=== PATIENT | male | born 1945 | race Caucasian/White ===

== ENCOUNTER 2017-01-26 13:36 | Outpatient (CLI) | payer MEDICARE | END 2017-01-26 13:37 | disposition home or self-care (01) | DX: I48.91 Unspecified atrial fibrillation (principal); E11.9 Type 2 diabetes mellitus without complications; G89.4 Chronic pain syndrome; I25.10 Atherosclerotic heart disease of native coronary artery without angina pectoris ==

== ENCOUNTER 2017-08-08 08:00 | Outpatient (CLI) | payer MEDICARE ==
[2017-08-08 19:10] LABS: BASOPHILS % (AUTO) 0.5 %; EOSINOPHILS # (AUTO) 0.2 10^3/uL (0.0-0.7); EOSINOPHILS % (AUTO) 2.3 %; HCT - HEMATOCRIT 37.7 % (42.0-52.0); HGB - HEMOGLOBIN 12.3 g/dL (14.0-18.0); LYMPHOCYTES # (AUTO) 1.7 10^3/uL (1.5-3.5); LYMPHOCYTES % (AUTO) 21.1 %; MEAN CORPUSCULAR HEMOGLOBIN 31.7 pg (27.0-31.0); MEAN CORPUSCULAR HGB CONC 32.7 g/dL (32.0-36.0); MEAN PLATELET VOLUME 7.9 fL (7.4-11.4); MONOCYTES # (AUTO) 0.9 10^3/uL (0.0-1.0); MONOCYTES % (AUTO) 10.8 %; NEUTROPHILS # (AUTO) 5.2 10^3/uL (1.5-6.6); NEUTROPHILS % (AUTO) 65.3 %; RED BLOOD COUNT 3.89 10^6/uL (4.70-6.10); RED CELL DISTRIBUTION WIDTH 13.9 % (12.0-15.0)
[2017-08-08 19:32] LABS: ALBUMIN/GLOBULIN RATIO 2.2 (1.0-2.2); BILIRUBIN,TOTAL 0.7 mg/dL (0.2-1.0); BUN - BLOOD UREA NITROGEN 15 mg/dL (6-20); CALCIUM 8.7 mg/dL (8.5-10.3); CARBON DIOXIDE - CO2 24 mmol/L (21-32); CHLORIDE 104 mmol/L (101-111); CHOL/HDL RATIO 2.9 (<5.0); CHOLESTEROL 134 mg/dL; CREATININE 0.9 mg/dL (0.6-1.2); GFR - MDRD 84 (>89); GLUCOSE 90 mg/dL (70-100); HDL CHOLESTEROL 47 mg/dL; LDL/HDL RATIO 1.3 (<3.6); POTASSIUM 3.8 mmol/L (3.5-5.0); SODIUM 135 mmol/L (135-145); TRIGLYCERIDES 121 mg/dL; VLDL CHOLESTEROL 24 mg/dL
[2017-08-08 20:18] LABS: HEMOGLOBIN A1C 0.27 g/dL
== END 2017-08-08 08:01 | disposition home or self-care (01) ==
LOC: LAB.WCP 08:00
PROVIDERS: ATTEND Family Medicine
DX: I25.5 Ischemic cardiomyopathy (principal); G89.4 Chronic pain syndrome; E11.9 Type 2 diabetes mellitus without complications; M06.09 Rheumatoid arthritis without rheumatoid factor, multiple sites; M19.90 Unspecified osteoarthritis, unspecified site; M25.511 Pain in right shoulder; Z79.899 Other long term (current) drug therapy
CPT/HCPCS: 36415; 80053; 80061; 82043; 83036; 85025; 85651; 86140

== ENCOUNTER 2018-08-06 13:48 | Outpatient (CLI) | payer MEDICARE ==
[2018-08-06 20:09] LABS: INR 5.6 (0.8-1.2)
== END 2018-08-06 13:49 | disposition home or self-care (01) ==
LOC: LAB.WCP 13:48
PROVIDERS: ATTEND Nurse Practitioner
DX: Z79.01 Long term (current) use of anticoagulants (principal)
CPT/HCPCS: 36415; 85610

== ENCOUNTER 2018-08-28 13:13 | Outpatient (CLI) | payer MEDICARE ==
[2018-08-28 19:03] LABS: INR 2.7 (0.8-1.2); PT - PROTHROMBIN TIME 30.2 secs (9.9-12.6)
== END 2018-08-28 13:14 | disposition home or self-care (01) ==
LOC: LAB.WCP 13:13
PROVIDERS: ATTEND Family Medicine
DX: I48.91 Unspecified atrial fibrillation (principal); Z79.01 Long term (current) use of anticoagulants
CPT/HCPCS: 36415; 85610

== ENCOUNTER 2018-11-08 08:00 | Outpatient (CLI) | payer MEDICARE ==
[2018-11-08 18:56] LABS: BASOPHILS # (AUTO) 0.1 10^3/uL (0.0-0.1); EOSINOPHILS # (AUTO) 0.2 10^3/uL (0.0-0.7); EOSINOPHILS % (AUTO) 3.4 %; HGB - HEMOGLOBIN 11.6 g/dL (14.0-18.0); LYMPHOCYTES # (AUTO) 1.4 10^3/uL (1.5-3.5); LYMPHOCYTES % (AUTO) 19.2 %; MEAN CORPUSCULAR HEMOGLOBIN 31.4 pg (27.0-31.0); MEAN CORPUSCULAR HGB CONC 32.1 g/dL (32.0-36.0); MEAN CORPUSCULAR VOLUME 97.8 fL (80.0-94.0); MEAN PLATELET VOLUME 8.5 fL (7.4-11.4); MONOCYTES # (AUTO) 0.9 10^3/uL (0.0-1.0); MONOCYTES % (AUTO) 12.9 %; NEUTROPHILS # (AUTO) 4.6 10^3/uL (1.5-6.6); NEUTROPHILS % (AUTO) 63.5 %; PLT - PLATELET COUNT 280 10^3/uL (130-450); RED BLOOD COUNT 3.69 10^6/uL (4.70-6.10); RED CELL DISTRIBUTION WIDTH 15.4 % (12.0-15.0); WHITE BLOOD COUNT 7.3 x10^3/uL (4.8-10.8)
[2018-11-08 19:39] LABS: ALBUMIN 3.8 g/dL (3.2-5.5); ALBUMIN/GLOBULIN RATIO 1.8 (1.0-2.2); ALKALINE PHOSPHATASE 77 IU/L (42-121); ALT ALANINE AMINOTRANSFERASE 12 IU/L (10-60); AST ASPARTATE AMINOTRANSFERASE 18 IU/L (10-42); BILIRUBIN,TOTAL 0.6 mg/dL (0.2-1.0); BUN - BLOOD UREA NITROGEN 13 mg/dL (6-20); CARBON DIOXIDE - CO2 27 mmol/L (21-32); CHLORIDE 105 mmol/L (101-111); CHOL/HDL RATIO 2.6 (<5.0); CHOLESTEROL 140 mg/dL; GFR - MDRD 74 (>89); GLUCOSE 85 mg/dL (70-100); HDL CHOLESTEROL 54 mg/dL; LDL CHOLESTEROL,CALCULATED 67 mg/dL; LDL/HDL RATIO 1.2 (<3.6); SODIUM 140 mmol/L (135-145); TOTAL PROTEIN 5.9 g/dL (6.7-8.2); VLDL CHOLESTEROL 19 mg/dL
[2018-11-08 20:08] LABS: HEMOGLOBIN A1C 0.34 g/dL; HEMOGLOBIN A1C % 4.7 % (4.6-6.2)
[2018-11-09 12:50] LABS: % IRON SATURATION 24 % (20-50); IRON 75 ug/dL (45-182); TOTAL IRON BINDING CAPACITY 314 ug/dL (250-450); TRANSFERRIN 224 mg/dL (180-329)
[2018-11-09 13:00] LABS: FERRITIN 81.9 ng/mL (23.9-336.2)
== END 2018-11-08 23:59 | disposition home or self-care (01) ==
LOC: LAB.WCP 08:00
PROVIDERS: ATTEND Family Medicine
DX: I25.5 Ischemic cardiomyopathy (principal); E78.5 Hyperlipidemia, unspecified; I48.91 Unspecified atrial fibrillation; M06.4 Inflammatory polyarthropathy; E11.9 Type 2 diabetes mellitus without complications; I25.10 Atherosclerotic heart disease of native coronary artery without angina pectoris; D64.9 Anemia, unspecified
CPT/HCPCS: 36415; 80053; 80061; 82043; 82607; 82728; 83036; 83540; 83721; 84443; 84466; 85025

== ENCOUNTER 2018-11-14 17:38 | Outpatient (CLI) | payer MEDICARE ==
[2018-11-14 19:19] LABS: MICROALBUM/CREATININE RATIO,UR 3.3 ug/mg (<30.0); MICROALBUMIN,URINE 0.8 mg/dL (0-300.0)
== END 2018-11-14 23:59 | disposition home or self-care (01) ==
LOC: LAB.R 17:38
PROVIDERS: ATTEND Family Medicine
DX: E11.9 Type 2 diabetes mellitus without complications (principal)
CPT/HCPCS: 82043; 82570

== ENCOUNTER 2018-12-20 08:00 | Outpatient (CLI) | payer MEDICARE | END 2018-12-20 23:59 | disposition home or self-care (01) | LOC: LAB.WCP 08:00 | PROVIDERS: ATTEND Family Medicine | DX: I48.91 Unspecified atrial fibrillation (principal); Z79.01 Long term (current) use of anticoagulants ==

== ENCOUNTER 2019-01-03 08:00 | Outpatient (CLI) | payer MEDICARE | END 2019-01-03 23:59 | disposition home or self-care (01) | LOC: LAB.WCP 08:00 | PROVIDERS: ATTEND Family Medicine | DX: I48.91 Unspecified atrial fibrillation (principal); Z79.01 Long term (current) use of anticoagulants | CPT/HCPCS: 81025 ==

== ENCOUNTER 2019-02-06 08:00 | Outpatient (CLI) | payer MEDICARE | END 2019-02-06 23:59 | disposition home or self-care (01) | LOC: LAB.WCP 08:00 | PROVIDERS: ATTEND Family Medicine | DX: I48.91 Unspecified atrial fibrillation (principal); Z79.01 Long term (current) use of anticoagulants | CPT/HCPCS: 81025 ==

== ENCOUNTER 2019-02-13 08:00 | Outpatient (CLI) | payer MEDICARE | END 2019-02-13 23:59 | disposition home or self-care (01) | LOC: LAB.WCP 08:00 | PROVIDERS: ATTEND Family Medicine | DX: I48.91 Unspecified atrial fibrillation (principal); Z79.01 Long term (current) use of anticoagulants ==

== ENCOUNTER 2019-02-26 08:00 | Outpatient (CLI) | payer MEDICARE | END 2019-02-26 23:59 | disposition home or self-care (01) | LOC: LAB.WCP 08:00 | PROVIDERS: ATTEND Family Medicine | DX: Z51.81 Encounter for therapeutic drug level monitoring (principal); I48.91 Unspecified atrial fibrillation; Z79.01 Long term (current) use of anticoagulants ==

== ENCOUNTER 2019-03-26 08:00 | Outpatient (CLI) | payer MEDICARE | END 2019-03-26 08:01 | disposition home or self-care (01) | LOC: LAB.WCP 08:00 | PROVIDERS: ATTEND Family Medicine | DX: I48.91 Unspecified atrial fibrillation (principal); Z79.01 Long term (current) use of anticoagulants ==

== ENCOUNTER 2019-04-23 08:00 | Outpatient (CLI) | payer MEDICARE | END 2019-04-23 08:01 | disposition home or self-care (01) | LOC: LAB.WCP 08:00 | PROVIDERS: ATTEND Physician Assistant Medical | DX: I48.91 Unspecified atrial fibrillation (principal); Z79.01 Long term (current) use of anticoagulants ==

== ENCOUNTER 2019-05-18 | Outpatient (CLI) | payer MEDICARE | END 2019-05-18 09:54 | disposition home or self-care (01) ==

== ENCOUNTER 2019-06-10 08:00 | Outpatient (CLI) | payer MEDICARE | END 2019-06-10 23:59 | disposition home or self-care (01) | LOC: LAB.WCP 08:00 | PROVIDERS: ATTEND Physician Assistant Medical | DX: I48.91 Unspecified atrial fibrillation (principal); Z79.01 Long term (current) use of anticoagulants ==

== ENCOUNTER 2019-06-19 08:00 | Outpatient (CLI) | payer MEDICARE | END 2019-06-19 23:59 | disposition home or self-care (01) | LOC: LAB.WCP 08:00 | PROVIDERS: ATTEND Family Medicine | DX: I48.91 Unspecified atrial fibrillation (principal); Z79.01 Long term (current) use of anticoagulants ==

== ENCOUNTER 2019-06-26 08:00 | Outpatient (CLI) | payer MEDICARE | END 2019-06-26 08:01 | disposition home or self-care (01) | LOC: LAB.WCP 08:00 | PROVIDERS: ATTEND Family Medicine | DX: I48.91 Unspecified atrial fibrillation (principal); Z79.01 Long term (current) use of anticoagulants ==

== ENCOUNTER 2019-07-30 08:00 | Outpatient (CLI) | payer MEDICARE | END 2019-07-30 08:01 | disposition home or self-care (01) | LOC: LAB.WCP 08:00 | PROVIDERS: ATTEND Physician Assistant Medical | DX: I48.91 Unspecified atrial fibrillation (principal); Z79.01 Long term (current) use of anticoagulants ==

== ENCOUNTER 2019-08-27 08:00 | Outpatient (CLI) | payer MEDICARE | END 2019-08-27 23:59 | disposition home or self-care (01) | LOC: LAB.WCP 08:00 | PROVIDERS: ATTEND Family Medicine | DX: I48.91 Unspecified atrial fibrillation (principal); Z79.01 Long term (current) use of anticoagulants ==

== ENCOUNTER 2019-09-02 08:00 | Outpatient (CLI) | payer MEDICARE | END 2019-09-02 23:59 | disposition home or self-care (01) | LOC: LAB.WCP 08:00 | PROVIDERS: ATTEND Physician Assistant Medical | DX: I48.91 Unspecified atrial fibrillation (principal); Z79.01 Long term (current) use of anticoagulants ==

== ENCOUNTER 2019-09-09 08:00 | Outpatient (CLI) | payer MEDICARE | END 2019-09-09 23:59 | disposition home or self-care (01) | LOC: LAB.WCP 08:00 | PROVIDERS: ATTEND Physician Assistant Medical | DX: I48.91 Unspecified atrial fibrillation (principal); Z79.01 Long term (current) use of anticoagulants ==

== ENCOUNTER 2019-09-17 08:00 | Outpatient (CLI) | payer MEDICARE | END 2019-09-17 23:59 | disposition home or self-care (01) | LOC: LAB.WCP 08:00 | PROVIDERS: ATTEND Family Medicine | DX: I48.91 Unspecified atrial fibrillation (principal); Z79.01 Long term (current) use of anticoagulants ==

== ENCOUNTER 2019-10-03 08:00 | Outpatient (CLI) | payer MEDICARE | END 2019-10-03 23:59 | disposition home or self-care (01) | LOC: LAB.WCP 08:00 | PROVIDERS: ATTEND Family Medicine | DX: Z79.01 Long term (current) use of anticoagulants (principal); I48.91 Unspecified atrial fibrillation ==

== ENCOUNTER 2019-10-10 08:00 | Outpatient (CLI) | payer MEDICARE | END 2019-10-10 23:59 | disposition home or self-care (01) | LOC: LAB.WCP 08:00 | PROVIDERS: ATTEND Family Medicine | DX: Z79.01 Long term (current) use of anticoagulants (principal); I48.91 Unspecified atrial fibrillation ==

== ENCOUNTER 2019-10-24 08:00 | Outpatient (CLI) | payer MEDICARE | END 2019-10-24 23:59 | disposition home or self-care (01) | LOC: LAB.WCP 08:00 | PROVIDERS: ATTEND Family Medicine | DX: Z79.01 Long term (current) use of anticoagulants (principal); I48.91 Unspecified atrial fibrillation ==

== ENCOUNTER 2019-10-31 08:00 | Outpatient (CLI) | payer MEDICARE | END 2019-10-31 23:59 | disposition home or self-care (01) | LOC: LAB.WCP 08:00 | PROVIDERS: ATTEND Family Medicine | DX: Z79.01 Long term (current) use of anticoagulants (principal); I48.91 Unspecified atrial fibrillation ==

== ENCOUNTER 2019-11-04 08:00 | Outpatient (CLI) | payer MEDICARE | END 2019-11-04 23:59 | disposition home or self-care (01) | LOC: LAB.WCP 08:00 | PROVIDERS: ATTEND Physician Assistant Medical | DX: Z79.01 Long term (current) use of anticoagulants (principal); I48.91 Unspecified atrial fibrillation ==

== ENCOUNTER 2019-11-11 08:00 | Outpatient (CLI) | payer MEDICARE | END 2019-11-11 23:59 | disposition home or self-care (01) | LOC: LAB.WCP 08:00 | PROVIDERS: ATTEND Physician Assistant Medical | DX: Z79.01 Long term (current) use of anticoagulants (principal); I48.91 Unspecified atrial fibrillation ==

== ENCOUNTER 2019-11-18 08:00 | Outpatient (CLI) | payer MEDICARE | END 2019-11-18 23:59 | disposition home or self-care (01) | LOC: LAB.WCP 08:00 | PROVIDERS: ATTEND Physician Assistant Medical | DX: I48.91 Unspecified atrial fibrillation (principal); Z79.01 Long term (current) use of anticoagulants ==

== ENCOUNTER 2019-12-05 08:00 | Outpatient (CLI) | payer MEDICARE | END 2019-12-05 23:59 | disposition home or self-care (01) | LOC: LAB.WCP 08:00 | PROVIDERS: ATTEND Family Medicine | DX: I48.91 Unspecified atrial fibrillation (principal); Z79.01 Long term (current) use of anticoagulants ==

== ENCOUNTER 2020-01-03 08:00 | Outpatient (CLI) | payer MEDICARE | END 2020-01-03 23:59 | disposition home or self-care (01) | LOC: LAB.WCP 08:00 | PROVIDERS: ATTEND Family Medicine | DX: I48.91 Unspecified atrial fibrillation (principal); Z79.01 Long term (current) use of anticoagulants ==

== ENCOUNTER 2020-01-17 08:00 | Outpatient (CLI) | payer MEDICARE | END 2020-01-17 23:59 | disposition home or self-care (01) | LOC: LAB.WCP 08:00 | PROVIDERS: ATTEND Family Medicine | DX: I48.91 Unspecified atrial fibrillation (principal); Z79.01 Long term (current) use of anticoagulants ==

== ENCOUNTER 2020-01-24 08:00 | Outpatient (CLI) | payer MEDICARE | END 2020-01-24 23:59 | disposition home or self-care (01) | LOC: LAB.WCP 08:00 | PROVIDERS: ATTEND Family Medicine | DX: I48.91 Unspecified atrial fibrillation (principal); Z79.01 Long term (current) use of anticoagulants ==

== ENCOUNTER 2020-02-07 08:00 | Outpatient (CLI) | payer MEDICARE | END 2020-02-07 23:59 | disposition home or self-care (01) | LOC: LAB.WCP 08:00 | PROVIDERS: ATTEND Family Medicine | DX: I48.91 Unspecified atrial fibrillation (principal); Z79.01 Long term (current) use of anticoagulants ==

== ENCOUNTER 2020-03-19 08:00 | Outpatient (CLI) | payer MEDICARE | END 2020-03-19 23:59 | disposition home or self-care (01) | LOC: LAB.WCP 08:00 | PROVIDERS: ATTEND Family Medicine | DX: I48.91 Unspecified atrial fibrillation (principal); Z79.01 Long term (current) use of anticoagulants ==

== ENCOUNTER 2020-04-16 08:00 | Outpatient (CLI) | payer MEDICARE | END 2020-04-16 23:59 | disposition home or self-care (01) | LOC: LAB.WCP 08:00 | PROVIDERS: ATTEND Family Medicine | DX: I48.91 Unspecified atrial fibrillation (principal); Z79.01 Long term (current) use of anticoagulants ==

== ENCOUNTER 2020-07-16 08:00 | Outpatient (CLI) | payer MEDICARE | END 2020-07-16 23:59 | disposition home or self-care (01) | LOC: LAB.WCP 08:00 | PROVIDERS: ATTEND Family Medicine | DX: Z79.01 Long term (current) use of anticoagulants (principal) ==

== ENCOUNTER 2020-10-28 08:00 | Outpatient (CLI) | payer MEDICARE | END 2020-10-28 23:59 | disposition home or self-care (01) | LOC: LAB.WCP 08:00 | PROVIDERS: ATTEND Internal Medicine | DX: Z79.01 Long term (current) use of anticoagulants (principal) ==

== ENCOUNTER 2020-11-04 08:00 | Outpatient (CLI) | payer MEDICARE | END 2020-11-04 23:59 | disposition home or self-care (01) | LOC: LAB.WCP 08:00 | PROVIDERS: ATTEND Internal Medicine | DX: Z79.01 Long term (current) use of anticoagulants (principal) ==

== ENCOUNTER 2020-11-13 08:00 | Outpatient (CLI) | payer MEDICARE | END 2020-11-13 23:59 | disposition home or self-care (01) | LOC: LAB.WCP 08:00 | PROVIDERS: ATTEND Internal Medicine | DX: Z79.01 Long term (current) use of anticoagulants (principal) ==

== ENCOUNTER 2020-11-20 08:00 | Outpatient (CLI) | payer MEDICARE | END 2020-11-20 23:59 | disposition home or self-care (01) | LOC: LAB.WCP 08:00 | PROVIDERS: ATTEND Internal Medicine | DX: Z79.01 Long term (current) use of anticoagulants (principal) ==

== ENCOUNTER 2020-12-04 08:00 | Outpatient (CLI) | payer MEDICARE | END 2020-12-04 23:59 | disposition home or self-care (01) | LOC: LAB.WCP 08:00 | PROVIDERS: ATTEND Internal Medicine | DX: I48.91 Unspecified atrial fibrillation (principal); Z79.01 Long term (current) use of anticoagulants ==

== ENCOUNTER 2021-01-06 08:00 | Outpatient (CLI) | payer MEDICARE | END 2021-01-06 23:59 | disposition home or self-care (01) | LOC: LAB.WCP 08:00 | PROVIDERS: ATTEND Internal Medicine | DX: I48.21 Permanent atrial fibrillation (principal); Z79.01 Long term (current) use of anticoagulants ==

== ENCOUNTER 2021-01-27 08:00 | Outpatient (CLI) | payer MEDICARE | END 2021-01-27 23:59 | disposition home or self-care (01) | LOC: LAB.WCP 08:00 | PROVIDERS: ATTEND Internal Medicine | DX: I48.21 Permanent atrial fibrillation (principal); Z79.01 Long term (current) use of anticoagulants ==

== ENCOUNTER 2021-02-10 08:00 | Outpatient (CLI) | payer MEDICARE | END 2021-02-10 23:59 | disposition home or self-care (01) | LOC: LAB.WCP 08:00 | PROVIDERS: ATTEND Internal Medicine | DX: I48.21 Permanent atrial fibrillation (principal); Z79.01 Long term (current) use of anticoagulants ==

== ENCOUNTER 2021-04-21 08:00 | Outpatient (CLI) | payer MEDICARE | END 2021-04-21 23:59 | disposition home or self-care (01) | LOC: LAB.WCP 08:00 | PROVIDERS: ATTEND Internal Medicine | DX: I48.21 Permanent atrial fibrillation (principal); Z79.01 Long term (current) use of anticoagulants ==

== ENCOUNTER 2021-05-19 08:00 | Outpatient (CLI) | payer MEDICARE | END 2021-05-19 23:59 | disposition home or self-care (01) | LOC: LAB.WCP 08:00 | PROVIDERS: ATTEND Internal Medicine | DX: I48.21 Permanent atrial fibrillation (principal); Z79.01 Long term (current) use of anticoagulants ==

== ENCOUNTER 2021-05-26 08:00 | Outpatient (CLI) | payer MEDICARE | END 2021-05-26 23:59 | disposition home or self-care (01) | LOC: LAB.WCP 08:00 | PROVIDERS: ATTEND Internal Medicine | DX: I48.21 Permanent atrial fibrillation (principal); Z79.01 Long term (current) use of anticoagulants ==

== ENCOUNTER 2021-06-16 08:00 | Outpatient (CLI) | payer MEDICARE | END 2021-06-16 23:59 | disposition home or self-care (01) | LOC: LAB.WCP 08:00 | PROVIDERS: ATTEND Internal Medicine | DX: I48.21 Permanent atrial fibrillation (principal); Z79.01 Long term (current) use of anticoagulants ==

== ENCOUNTER 2021-08-04 08:00 | Outpatient (CLI) | payer MEDICARE | END 2021-08-04 23:59 | disposition home or self-care (01) | LOC: LAB.WCP 08:00 | PROVIDERS: ATTEND Internal Medicine | DX: I48.21 Permanent atrial fibrillation (principal); Z79.01 Long term (current) use of anticoagulants ==

== ENCOUNTER 2021-08-25 08:00 | Outpatient (CLI) | payer MEDICARE | END 2021-08-25 23:59 | disposition home or self-care (01) | LOC: LAB.WCP 08:00 | PROVIDERS: ATTEND Internal Medicine | DX: I48.21 Permanent atrial fibrillation (principal); Z79.01 Long term (current) use of anticoagulants ==

== ENCOUNTER 2021-09-15 08:00 | Outpatient (CLI) | payer MEDICARE | END 2021-09-15 23:59 | disposition home or self-care (01) | LOC: LAB.WCP 08:00 | PROVIDERS: ATTEND Internal Medicine | DX: I48.21 Permanent atrial fibrillation (principal); Z79.01 Long term (current) use of anticoagulants ==

== ENCOUNTER 2021-09-29 08:00 | Outpatient (CLI) | payer MEDICARE | END 2021-09-29 23:59 | disposition home or self-care (01) | LOC: LAB.WCP 08:00 | PROVIDERS: ATTEND Internal Medicine | DX: I48.21 Permanent atrial fibrillation (principal); Z79.01 Long term (current) use of anticoagulants ==

== ENCOUNTER 2021-10-20 08:00 | Outpatient (CLI) | payer MEDICARE | END 2021-10-20 23:59 | disposition home or self-care (01) | LOC: LAB.WCP 08:00 | PROVIDERS: ATTEND Internal Medicine | DX: I48.21 Permanent atrial fibrillation (principal); Z79.01 Long term (current) use of anticoagulants ==

== ENCOUNTER 2021-10-27 08:00 | Outpatient (CLI) | payer MEDICARE | END 2021-10-27 23:59 | disposition home or self-care (01) | LOC: LAB.WCP 08:00 | PROVIDERS: ATTEND Internal Medicine | DX: I48.21 Permanent atrial fibrillation (principal); Z79.01 Long term (current) use of anticoagulants ==

== ENCOUNTER 2021-11-22 14:55 | Outpatient (CLI) | payer MEDICARE ==
[2021-11-22 18:38] LABS: INR > 10.0 (0.8-1.2); PT - PROTHROMBIN TIME > 120.0 secs (9.9-12.6)
== END 2021-11-22 14:56 | disposition home or self-care (01) ==
LOC: LAB.N 14:55
PROVIDERS: ATTEND Internal Medicine
DX: I48.21 Permanent atrial fibrillation (principal); Z79.01 Long term (current) use of anticoagulants
CPT/HCPCS: 36415; 85610

== ENCOUNTER 2021-11-24 13:33 | Outpatient (CLI) | payer MEDICARE ==
[2021-11-24 18:27] LABS: INR > 10.0 (0.8-1.2); PT - PROTHROMBIN TIME > 120.0 secs (9.9-12.6)
== END 2021-11-24 13:34 | disposition home or self-care (01) ==
LOC: LAB.N 13:33
PROVIDERS: ATTEND Internal Medicine
DX: I48.21 Permanent atrial fibrillation (principal); Z79.01 Long term (current) use of anticoagulants
CPT/HCPCS: 36415; 85610

== ENCOUNTER 2021-11-29 08:00 | Outpatient (CLI) | payer MEDICARE | END 2021-11-29 23:59 | disposition home or self-care (01) | LOC: LAB.N 08:00 | PROVIDERS: ATTEND Internal Medicine | DX: I48.21 Permanent atrial fibrillation (principal); Z79.01 Long term (current) use of anticoagulants ==

== ENCOUNTER 2021-12-08 08:00 | Outpatient (CLI) | payer MEDICARE | END 2021-12-08 23:59 | disposition home or self-care (01) | LOC: LAB.N 08:00 | PROVIDERS: ATTEND Internal Medicine | DX: I48.21 Permanent atrial fibrillation (principal); Z79.01 Long term (current) use of anticoagulants ==

== ENCOUNTER 2021-12-22 08:00 | Outpatient (CLI) | payer MEDICARE | END 2021-12-22 23:59 | disposition home or self-care (01) | LOC: LAB.N 08:00 | PROVIDERS: ATTEND Internal Medicine | DX: I48.21 Permanent atrial fibrillation (principal); Z79.01 Long term (current) use of anticoagulants ==

== ENCOUNTER 2022-01-05 08:00 | Outpatient (CLI) | payer MEDICARE | END 2022-01-05 23:59 | disposition home or self-care (01) | LOC: LAB.WCP 08:00 | PROVIDERS: ATTEND Internal Medicine | DX: I48.21 Permanent atrial fibrillation (principal); Z79.01 Long term (current) use of anticoagulants ==

== ENCOUNTER 2022-01-26 08:00 | Outpatient (CLI) | payer MEDICARE | END 2022-01-26 23:59 | disposition home or self-care (01) | LOC: LAB.WCP 08:00 | PROVIDERS: ATTEND Internal Medicine | DX: I48.21 Permanent atrial fibrillation (principal); Z79.01 Long term (current) use of anticoagulants ==

== ENCOUNTER 2022-02-02 08:00 | Outpatient (CLI) | payer MEDICARE | END 2022-02-02 23:59 | disposition home or self-care (01) | LOC: LAB.N 08:00 | PROVIDERS: ATTEND Internal Medicine | DX: I48.21 Permanent atrial fibrillation (principal); Z79.01 Long term (current) use of anticoagulants ==

== ENCOUNTER 2022-02-16 08:00 | Outpatient (CLI) | payer MEDICARE | END 2022-02-16 08:01 | disposition home or self-care (01) | LOC: LAB.N 08:00 | PROVIDERS: ATTEND Internal Medicine | DX: I48.21 Permanent atrial fibrillation (principal); Z79.01 Long term (current) use of anticoagulants ==

== ENCOUNTER 2022-02-23 08:00 | Outpatient (CLI) | payer MEDICARE | END 2022-02-23 23:59 | disposition home or self-care (01) | LOC: LAB.N 08:00 | PROVIDERS: ATTEND Internal Medicine | DX: I48.21 Permanent atrial fibrillation (principal); Z79.01 Long term (current) use of anticoagulants ==

== ENCOUNTER 2022-03-02 08:00 | Outpatient (CLI) | payer MEDICARE | END 2022-03-02 23:59 | disposition home or self-care (01) | LOC: LAB.WCP 08:00 | PROVIDERS: ATTEND Internal Medicine | DX: I48.21 Permanent atrial fibrillation (principal); Z79.01 Long term (current) use of anticoagulants ==

== ENCOUNTER 2022-03-09 08:00 | Outpatient (CLI) | payer MEDICARE | END 2022-03-09 08:01 | disposition home or self-care (01) | LOC: LAB.WCP 08:00 | PROVIDERS: ATTEND Internal Medicine | DX: I48.21 Permanent atrial fibrillation (principal); Z79.01 Long term (current) use of anticoagulants ==

== ENCOUNTER → 2022-03-30 | Outpatient (CLI) | payer MEDICARE | LOC: LAB.WCP 08:00 | PROVIDERS: ATTEND Internal Medicine | DX: I48.21 Permanent atrial fibrillation (principal); Z79.01 Long term (current) use of anticoagulants ==

== ENCOUNTER → 2022-04-06 | Outpatient (CLI) | payer MEDICARE | LOC: LAB.WCP 08:00 | PROVIDERS: ATTEND Internal Medicine | DX: I48.21 Permanent atrial fibrillation (principal); Z79.01 Long term (current) use of anticoagulants ==

== ENCOUNTER → 2022-04-13 | Outpatient (CLI) | payer MEDICARE | LOC: LAB.WCP 08:00 | PROVIDERS: ATTEND Internal Medicine | DX: I48.21 Permanent atrial fibrillation (principal); Z79.01 Long term (current) use of anticoagulants ==

== ENCOUNTER → 2022-04-20 | Outpatient (CLI) | payer MEDICARE | LOC: LAB.WCP 08:00 | PROVIDERS: ATTEND Internal Medicine | DX: I48.21 Permanent atrial fibrillation (principal); Z79.01 Long term (current) use of anticoagulants ==

== ENCOUNTER 2022-05-04 08:00 | Outpatient (CLI) | payer MEDICARE | END 2022-05-04 23:59 | disposition home or self-care (01) | LOC: LAB.WCP 08:00 | PROVIDERS: ATTEND Internal Medicine | DX: I48.21 Permanent atrial fibrillation (principal); Z79.01 Long term (current) use of anticoagulants ==

== ENCOUNTER 2022-06-22 08:00 | Outpatient (CLI) | payer MEDICARE | END 2022-06-22 23:59 | disposition home or self-care (01) | LOC: LAB.N 08:00 | PROVIDERS: ATTEND Internal Medicine | DX: I48.21 Permanent atrial fibrillation (principal); Z79.01 Long term (current) use of anticoagulants ==

== ENCOUNTER → 2022-07-20 | Outpatient (CLI) | payer MEDICARE | LOC: LAB.N 08:00 | PROVIDERS: ATTEND Internal Medicine | DX: I48.21 Permanent atrial fibrillation (principal); Z79.01 Long term (current) use of anticoagulants ==

== ENCOUNTER 2022-08-03 08:00 | Outpatient (CLI) | payer MEDICARE | END 2022-08-03 08:01 | disposition home or self-care (01) | LOC: LAB.WCP 08:00 | PROVIDERS: ATTEND Internal Medicine | DX: I48.21 Permanent atrial fibrillation (principal); Z79.01 Long term (current) use of anticoagulants ==

== ENCOUNTER 2022-08-17 08:00 | Outpatient (CLI) | payer MEDICARE | END 2022-08-17 23:59 | disposition home or self-care (01) | LOC: LAB.WCP 08:00 | PROVIDERS: ATTEND Internal Medicine | DX: I48.21 Permanent atrial fibrillation (principal); Z79.01 Long term (current) use of anticoagulants ==

== ENCOUNTER → 2022-08-24 | Outpatient (CLI) | payer MEDICARE | LOC: LAB.WCP 08:00 | PROVIDERS: ATTEND Internal Medicine | DX: I48.21 Permanent atrial fibrillation (principal); Z79.01 Long term (current) use of anticoagulants ==

== ENCOUNTER → 2022-09-07 | Outpatient (CLI) | payer MEDICARE | LOC: LAB.WCP 08:00 | PROVIDERS: ATTEND Internal Medicine | DX: I48.21 Permanent atrial fibrillation (principal); Z79.01 Long term (current) use of anticoagulants ==

== ENCOUNTER 2022-09-14 08:00 | Outpatient (CLI) | payer MEDICARE | END 2022-09-14 08:01 | disposition home or self-care (01) | LOC: LAB.WCP 08:00 | PROVIDERS: ATTEND Internal Medicine | DX: I48.21 Permanent atrial fibrillation (principal); Z79.01 Long term (current) use of anticoagulants ==

== ENCOUNTER → 2022-10-19 | Outpatient (CLI) | payer MEDICARE | LOC: LAB.WCP 08:00 | PROVIDERS: ATTEND Internal Medicine | DX: I48.21 Permanent atrial fibrillation (principal); Z79.01 Long term (current) use of anticoagulants ==

== ENCOUNTER → 2022-10-26 | Outpatient (CLI) | payer MEDICARE | LOC: LAB.WCP 08:00 | PROVIDERS: ATTEND Internal Medicine | DX: I48.21 Permanent atrial fibrillation (principal); Z79.01 Long term (current) use of anticoagulants ==

== ENCOUNTER → 2022-11-23 | Outpatient (CLI) | payer MEDICARE | LOC: LAB.WCP 08:00 | PROVIDERS: ATTEND Internal Medicine | DX: I48.21 Permanent atrial fibrillation (principal); Z79.01 Long term (current) use of anticoagulants ==

== ENCOUNTER 2022-12-28 08:00 | Outpatient (CLI) | payer MEDICARE | END 2022-12-28 23:59 | disposition home or self-care (01) | LOC: LAB.WCP 08:00 | PROVIDERS: ATTEND Internal Medicine | DX: I48.21 Permanent atrial fibrillation (principal); Z79.01 Long term (current) use of anticoagulants ==

== ENCOUNTER 2023-01-04 08:00 | Outpatient (CLI) | payer MEDICARE | END 2023-01-04 23:59 | disposition home or self-care (01) | LOC: LAB.N 08:00 | PROVIDERS: ATTEND Internal Medicine | DX: I48.21 Permanent atrial fibrillation (principal); Z79.01 Long term (current) use of anticoagulants ==

== ENCOUNTER 2023-01-11 08:00 | Outpatient (CLI) | payer MEDICARE | END 2023-01-11 23:59 | disposition home or self-care (01) | LOC: LAB.N 08:00 | PROVIDERS: ATTEND Internal Medicine | DX: I48.21 Permanent atrial fibrillation (principal); Z79.01 Long term (current) use of anticoagulants ==

== ENCOUNTER 2023-01-18 08:00 | Outpatient (CLI) | payer MEDICARE | END 2023-01-18 23:59 | disposition home or self-care (01) | LOC: LAB.WCP 08:00 | PROVIDERS: ATTEND Internal Medicine | DX: I48.21 Permanent atrial fibrillation (principal); Z79.01 Long term (current) use of anticoagulants ==

== ENCOUNTER 2023-02-15 08:00 | Outpatient (CLI) | payer MEDICARE | END 2023-02-15 23:59 | disposition home or self-care (01) | LOC: LAB.WCP 08:00 | PROVIDERS: ATTEND Internal Medicine | DX: I48.21 Permanent atrial fibrillation (principal); Z79.01 Long term (current) use of anticoagulants ==

== ENCOUNTER 2023-03-01 08:00 | Outpatient (CLI) | payer MEDICARE | END 2023-03-01 23:59 | disposition home or self-care (01) | LOC: LAB.N 08:00 | PROVIDERS: ATTEND Internal Medicine | DX: I48.21 Permanent atrial fibrillation (principal); Z79.01 Long term (current) use of anticoagulants ==

== ENCOUNTER 2023-03-22 08:00 | Outpatient (CLI) | payer MEDICARE | END 2023-03-22 23:59 | disposition home or self-care (01) | LOC: LAB.WCP 08:00 | PROVIDERS: ATTEND Internal Medicine | DX: I48.21 Permanent atrial fibrillation (principal); Z79.01 Long term (current) use of anticoagulants ==

== ENCOUNTER 2023-04-19 08:00 | Outpatient (CLI) | payer MEDICARE | END 2023-04-19 23:59 | disposition home or self-care (01) | LOC: LAB.N 08:00 | PROVIDERS: ATTEND Internal Medicine | DX: I48.21 Permanent atrial fibrillation (principal); Z79.01 Long term (current) use of anticoagulants ==

== ENCOUNTER 2023-05-24 08:00 | Outpatient (CLI) | payer MEDICARE | END 2023-05-24 23:59 | disposition home or self-care (01) | LOC: LAB.WCP 08:00 | PROVIDERS: ATTEND Internal Medicine | DX: I48.21 Permanent atrial fibrillation (principal); Z79.01 Long term (current) use of anticoagulants ==

== ENCOUNTER 2023-06-07 08:00 | Outpatient (CLI) | payer MEDICARE | END 2023-06-07 23:59 | disposition home or self-care (01) | LOC: LAB.WCP 08:00 | PROVIDERS: ATTEND Internal Medicine | DX: I48.21 Permanent atrial fibrillation (principal); Z79.01 Long term (current) use of anticoagulants ==

== ENCOUNTER 2023-06-14 08:00 | Outpatient (CLI) | payer MEDICARE | END 2023-06-14 23:59 | disposition home or self-care (01) | LOC: LAB.WCP 08:00 | PROVIDERS: ATTEND Internal Medicine | DX: I48.21 Permanent atrial fibrillation (principal); Z79.01 Long term (current) use of anticoagulants ==

== ENCOUNTER 2023-06-28 08:00 | Outpatient (CLI) | payer MEDICARE | END 2023-06-28 23:59 | disposition home or self-care (01) | LOC: LAB.N 08:00 | PROVIDERS: ATTEND Internal Medicine | DX: I48.21 Permanent atrial fibrillation (principal); Z79.01 Long term (current) use of anticoagulants ==

== ENCOUNTER 2023-08-02 08:00 | Outpatient (CLI) | payer MEDICARE | END 2023-08-02 23:59 | disposition home or self-care (01) | LOC: LAB.N 08:00 | PROVIDERS: ATTEND Internal Medicine | DX: I48.21 Permanent atrial fibrillation (principal); Z79.01 Long term (current) use of anticoagulants ==

== ENCOUNTER 2023-08-23 08:00 | Outpatient (CLI) | payer MEDICARE | END 2023-08-23 23:59 | disposition home or self-care (01) | LOC: LAB.WCP 08:00 | PROVIDERS: ATTEND Internal Medicine | DX: I48.21 Permanent atrial fibrillation (principal); Z79.01 Long term (current) use of anticoagulants ==

== ENCOUNTER 2023-09-06 08:00 | Outpatient (CLI) | payer MEDICARE | END 2023-09-06 23:59 | disposition home or self-care (01) | LOC: LAB.WCP 08:00 | PROVIDERS: ATTEND Internal Medicine | DX: I48.21 Permanent atrial fibrillation (principal); Z79.01 Long term (current) use of anticoagulants ==

== ENCOUNTER 2023-09-13 08:00 | Outpatient (CLI) | payer MEDICARE | END 2023-09-13 23:59 | disposition home or self-care (01) | LOC: LAB.WCP 08:00 | PROVIDERS: ATTEND Internal Medicine | DX: Z53.9 Procedure and treatment not carried out, unspecified reason (principal) ==

== ENCOUNTER 2023-09-22 08:00 | Outpatient (CLI) | payer MEDICARE | END 2023-09-22 08:01 | disposition home or self-care (01) | LOC: LAB.N 08:00 | PROVIDERS: ATTEND Internal Medicine | DX: I48.21 Permanent atrial fibrillation (principal); Z79.01 Long term (current) use of anticoagulants ==

== ENCOUNTER → 2023-10-13 | Outpatient (CLI) | payer MEDICARE | LOC: LAB.N 08:00 | PROVIDERS: ATTEND Internal Medicine | DX: I48.21 Permanent atrial fibrillation (principal); Z79.01 Long term (current) use of anticoagulants ==

== ENCOUNTER 2023-10-20 08:00 | Outpatient (CLI) | payer MEDICARE | END 2023-10-20 08:01 | disposition home or self-care (01) | LOC: LAB.N 08:00 | PROVIDERS: ATTEND Internal Medicine | DX: I48.21 Permanent atrial fibrillation (principal); Z79.01 Long term (current) use of anticoagulants ==

== ENCOUNTER 2023-11-15 08:00 | Outpatient (CLI) | payer MEDICARE | END 2023-11-15 08:01 | disposition home or self-care (01) | LOC: LAB.N 08:00 | PROVIDERS: ATTEND Internal Medicine | DX: I48.21 Permanent atrial fibrillation (principal); Z79.01 Long term (current) use of anticoagulants ==

== ENCOUNTER 2023-11-22 08:00 | Outpatient (CLI) | payer MEDICARE | END 2023-11-22 08:01 | disposition home or self-care (01) | LOC: LAB.N 08:00 | PROVIDERS: ATTEND Internal Medicine | DX: I48.21 Permanent atrial fibrillation (principal); Z79.01 Long term (current) use of anticoagulants ==

== ENCOUNTER 2023-12-06 08:00 | Outpatient (CLI) | payer MEDICARE | END 2023-12-06 08:01 | disposition home or self-care (01) | LOC: LAB.WCP 08:00 | PROVIDERS: ATTEND Internal Medicine | DX: I48.21 Permanent atrial fibrillation (principal); Z79.01 Long term (current) use of anticoagulants ==

== ENCOUNTER 2023-12-28 16:25 | Outpatient (CLI) | payer MEDICARE ==
[2023-12-28 21:28] LABS: BASOPHILS % (AUTO) 0.6 %; EOSINOPHILS # (AUTO) 0.2 10^3/uL (0.0-0.7); EOSINOPHILS % (AUTO) 3.3 %; HCT - HEMATOCRIT 30.6 % (42.0-52.0); HGB - HEMOGLOBIN 9.7 g/dL (14.0-18.0); LYMPHOCYTES % (AUTO) 15.6 %; MEAN CORPUSCULAR HEMOGLOBIN 32.6 pg (27.0-31.0); MEAN CORPUSCULAR HGB CONC 31.7 g/dL (32.0-36.0); MEAN CORPUSCULAR VOLUME 102.7 fL (80.0-94.0); MEAN PLATELET VOLUME 10.7 fL (7.4-11.4); MONOCYTES # (AUTO) 0.7 10^3/uL (0.0-1.0); MONOCYTES % (AUTO) 10.8 %; NEUTROPHILS # (AUTO) 4.3 10^3/uL (1.5-6.6); NEUTROPHILS % (AUTO) 69.4 %; PLT - PLATELET COUNT 241 10^3/uL (130-450); RED BLOOD COUNT 2.98 10^6/uL (4.70-6.10); WHITE BLOOD COUNT 6.3 x10^3/uL (4.8-10.8)
[2023-12-28 21:42] LABS: ESTIMATED AVERAGE GLUCOSE 85 mg/dL (70-100); HEMOGLOBIN A1c% 4.6 % (4.27-6.07)
[2023-12-28 21:45] LABS: ALBUMIN 3.5 g/dL (3.2-5.5); ALBUMIN/GLOBULIN RATIO 1.5 (1.0-2.2); ALKALINE PHOSPHATASE 73 IU/L (42-121); ALT ALANINE AMINOTRANSFERASE 12 IU/L (10-60); AST ASPARTATE AMINOTRANSFERASE 15 IU/L (10-42); BILIRUBIN,TOTAL 0.5 mg/dL (0.2-1.0); BUN - BLOOD UREA NITROGEN 15 mg/dL (6-20); CALCIUM 8.9 mg/dL (8.5-10.3); CARBON DIOXIDE - CO2 27 mmol/L (21-32); CHLORIDE 108 mmol/L (101-111); CHOL/HDL RATIO 2.7 (<5.0); CHOLESTEROL 123 mg/dL; GFR - MDRD 73 (>89); GLUCOSE 121 mg/dL (74-104); HDL CHOLESTEROL 45 mg/dL; LDL CHOLESTEROL,CALCULATED 58 mg/dL; LDL/HDL RATIO 1.3 (<3.6); POTASSIUM 3.8 mmol/L (3.5-4.5); SODIUM 138 mmol/L (135-145); TOTAL PROTEIN 5.8 g/dL (6.4-8.9); TRIGLYCERIDES 99 mg/dL (48-352); VLDL CHOLESTEROL 20 mg/dL
[2023-12-28 21:55] LABS: THYROID STIMULATING HORMONE 1.86 uIU/mL (0.34-5.60)
== END 2023-12-28 16:26 | disposition home or self-care (01) ==
LOC: LAB.N 16:25
PROVIDERS: ATTEND Internal Medicine
DX: E78.5 Hyperlipidemia, unspecified (principal); I25.5 Ischemic cardiomyopathy; R73.03 Prediabetes; R63.4 Abnormal weight loss
CPT/HCPCS: 36415; 80053; 80061; 82043; 82570; 83036; 83721; 83880; 84443; 85025

== ENCOUNTER 2024-01-03 08:00 | Outpatient (CLI) | payer MEDICARE | END 2024-01-03 08:01 | disposition home or self-care (01) | LOC: LAB.WCP 08:00 | PROVIDERS: ATTEND Internal Medicine | DX: I48.21 Permanent atrial fibrillation (principal); Z79.01 Long term (current) use of anticoagulants ==

== ENCOUNTER 2024-01-10 08:00 | Outpatient (CLI) | payer MEDICARE | END 2024-01-10 08:01 | disposition home or self-care (01) | LOC: LAB.WCP 08:00 | PROVIDERS: ATTEND Internal Medicine | DX: I48.21 Permanent atrial fibrillation (principal); Z79.01 Long term (current) use of anticoagulants ==

== ENCOUNTER → 2024-02-16 | Outpatient (CLI) | payer MEDICARE | LOC: LAB.WCP 08:00 | PROVIDERS: ATTEND Internal Medicine | DX: I48.21 Permanent atrial fibrillation (principal); Z79.01 Long term (current) use of anticoagulants ==

== ENCOUNTER 2024-02-23 08:00 | Outpatient (CLI) | payer MEDICARE | END 2024-02-23 08:01 | disposition home or self-care (01) | LOC: LAB.WCP 08:00 | PROVIDERS: ATTEND Internal Medicine | DX: I48.21 Permanent atrial fibrillation (principal); Z79.01 Long term (current) use of anticoagulants ==

== ENCOUNTER 2024-03-08 08:00 | Outpatient (CLI) | payer MEDICARE | END 2024-03-08 08:01 | disposition home or self-care (01) | LOC: LAB.WCP 08:00 | PROVIDERS: ATTEND Internal Medicine | DX: I48.21 Permanent atrial fibrillation (principal); Z79.01 Long term (current) use of anticoagulants ==

== ENCOUNTER 2024-03-15 08:00 | Outpatient (CLI) | payer MEDICARE | END 2024-03-15 23:59 | disposition home or self-care (01) | LOC: LAB.WCP 08:00 | PROVIDERS: ATTEND Internal Medicine | DX: I48.21 Permanent atrial fibrillation (principal); Z79.01 Long term (current) use of anticoagulants ==

== ENCOUNTER 2024-03-29 08:00 | Outpatient (CLI) | payer MEDICARE | END 2024-03-29 23:59 | disposition home or self-care (01) | LOC: LAB.WCP 08:00 | PROVIDERS: ATTEND Internal Medicine | DX: I48.21 Permanent atrial fibrillation (principal) ==

== ENCOUNTER 2024-04-19 08:00 | Outpatient (CLI) | payer MEDICARE | END 2024-04-19 23:59 | disposition home or self-care (01) | LOC: LAB.WCP 08:00 | PROVIDERS: ATTEND Internal Medicine | DX: I48.21 Permanent atrial fibrillation (principal); Z79.01 Long term (current) use of anticoagulants ==

== ENCOUNTER 2024-05-17 08:00 | Outpatient (CLI) | payer MEDICARE | END 2024-05-17 23:59 | disposition home or self-care (01) | LOC: LAB.WCP 08:00 | PROVIDERS: ATTEND Internal Medicine | DX: I48.21 Permanent atrial fibrillation (principal); Z79.01 Long term (current) use of anticoagulants ==

== ENCOUNTER 2024-06-21 08:00 | Outpatient (CLI) | payer MEDICARE | END 2024-06-21 23:59 | disposition home or self-care (01) | LOC: LAB.WCP 08:00 | PROVIDERS: ATTEND Internal Medicine | DX: I48.21 Permanent atrial fibrillation (principal); Z79.01 Long term (current) use of anticoagulants ==

== ENCOUNTER 2024-07-10 08:00 | Outpatient (CLI) | payer MEDICARE | END 2024-07-10 23:59 | disposition home or self-care (01) | LOC: LAB.WCP 08:00 | PROVIDERS: ATTEND Internal Medicine | DX: I48.21 Permanent atrial fibrillation (principal); Z79.01 Long term (current) use of anticoagulants ==

== ENCOUNTER 2025-10-02 11:38 | Inpatient (IN) ==
--- OUTSIDE RECORDS SUMMARY | 2025-10-02 11:49 | EXTERNAL MEDICAL SUMMARY RPT | Continuity of Care Document ---
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 Role Phone Unavailable Unavailable Yogesh Bonds Unavailable Unavailable Allergies and Intolerances date description facility reaction severity 2025-04-29 10:00 [id number]^amiodarone ^^amiodarone^^allergy .id [facility] cardiac conduction issue (no severity) 2025-07-24 10:00 [id number]^amiodarone ^^amiodarone^^allergy .id [facility] cardiac conduction issue (no severity) Medications date description facility 2025-08-15 00:00 Oxycodone-Acetaminophen [facility] 2025-08-15 00:00 Nitroglycerin [facility] 2025-08-15 00:00 Prednisone [facility] 2025-08-15 00:00 Warfarin [facility] 2025-08-15 00:00 Metformin [facility] 2025-08-15 00:00 [facility] Problems date description facility 2025-07-02 13:54 Permanent atrial fibrillation [facility] 2025-07-02 13:54 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 [facility] 2025-07-11 09:21 Permanent atrial fibrillation [facility] 2025-07-11 09:21 [facility] (current) use of anti coagulants [facility] 2025-07-11 13:44 Permanent atrial fibrillation [facility] 2025-07-11 13:44 [facility] (current) use of anti coagulants [facility] 2025-07-11 13:54 Permanent atrial fibrillation [facility] 2025-07-11 13:54 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 2025-07-22 12:56 [facility] 13:12 Permanent atrial fibrillation [facility] 2025-07-23 13:12 [facility] (current) [facility]23 13:21 Permanent atrial fibrillation [facility] 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 2025-07-30 13:29 [facility] (current) use of anti coagulants [facility] 2025-07-30 13:32 Permanent atrial fibrillation [facility] 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 [facility] 2025-08-13 13:41 Permanent atrial fibrillation [facility] 2025-08-13 13:41 [facility] (current) use of anti coagulants [facility] 2025-08-15 00:00 Orthostatic hypotension [facility] 2025-09-03 09:14 Permanent atrial fibrillation [facility] 2025-09-03 09:14 [facility] (current) [facility] anti coagulants [facility] 2025-09-03 13:44 Permanent atrial fibrillation [facility] 2025-09-03 13:44 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 [facility] 2025-09-03 14:00 Permanent atrial fibrillation [facility] 2025-09-03 14:00 [facility] (current) use of anti coagulants [facility] 2025-09-03 14:02 Permanent atrial fibrillation [facility] 2025-09-03 14:02 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 [facility] 2025-09-17 14:01 [facility] 2025-09-17 14:01 [facility] (current) use of anti coagulants [facility] 2025-09-17 14:09 [facility] 2025-09-17 14:09 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 2025-08-15 00:00 Complete echocardiography with Definity contrast [facility] Results/Labs test date facility value unit notes Result panel 1 NUCLEATED RED BLOOD CELLS AUTO 2025-07-24 14:[address] [place] [address] 0.0 /100wbc (missing) BASOPHILS # (AUTO) 2025-07-24 14:[address] [place] [address] 0.0 10 3/ul (missing) EOSINOPHILS # (AUTO) 2025-07-24 :[address] [place] [address] 0.0 10 3/ul (missing) NRBC ABSOLUTE COUNT (AUTO) 2025-07-24 :[address] [place] [address] 0.00 x10 3/ul (missing) MONOCYTES # (AUTO) 2025-07-24 :[address] [place] [address] 0.6 10 3/ul (missing) BILIRUBIN,TOTAL 2025-07-24 :[address] [place] [address] 0.8 mg/dl As of April 2023 testing method has changed, this may include reference ranges. LYMPHOCYTES # (AUTO) 2025-07-24 :[address] [place] [address] 1.1 10 3/ul (missing) CREATININE 2025-07-[address] [place] [address] 1.2 mg/dl As of April 2023 testing method has changed, this may include reference ranges. MAGNESIUM 2025-07-24 :[address] [place] [address] 1.5 mg/dl As of April 2023 testing method has changed, this may include reference ranges. ALBUMIN/GLOBULIN RATIO 2025-07-24 :[address] [place] [address] 1.6 (missing) (missing) INR 2025-07-24 :[address] [place] [address] 1.9 (missing) Oral Anticoagulant Indication INR range Venous Thrombosis, P.E. 2.0 - 3.0 Mechanical Valve 2.5 - 3.5 MEAN PLATELET VOLUME 2025-07-[address] [place] [address] 10.4 fl (missing) HGB - HEMOGLOBIN 2025-07-24 :[address] [place] [address] 10.4 g/dl (missing) MEAN CORPUSCULAR VOLUME 2025-07-24 :[address] [place] [address] 102.9 fl (missing) CHLORIDE 2025-07-[address] [place] [address] 104 mmol/l As of April 2023 testing method has changed, this may include reference ranges. GLUCOSE 2025-07-[address] [place] [address] 107 mg/dl As of April 2023 testing method has changed, this may include reference ranges. ALT ALANINE AMINOTRANSFERASE 2025-07-24 :[address] [place] [address] 13 iu/l As of April 2023 testing method has changed, this may include reference ranges. SODIUM 2025-07-24 :[address] [place] [address] 136 mmol/l (missing) RED CELL DISTRIBUTION WIDTH 2025-07-24 14:[address] [place] [address] 14.7 % (missing) AST ASPARTATE AMINOTRANSFERASE 2025-07-24 :[address] [place] [address] 15 iu/l As of April 2023 testing method has changed, this may include reference ranges. TROPONIN I HIGH SENSITIVITY 2025-07-24 :[address] [place] [address] 16.2 ng/l A HIGH SENSITIVITY TROPONIN result of >= 14.9 ng/L for females is considered POSITIVE. A HIGH SENSITIVITY TROPONIN result of >= 19.8 ng/L for males is considered POSITIVE. A HIGH SENSITIVITY TROPONIN result of >= 17.9 ng/L for unspecified is considered POSITIVE. BUN - BLOOD UREA NITROGEN 2025-07-24 :[address] [place] [address] 17 mg/dl As of April 2023 testing method has changed, this may include reference ranges. GLOBULIN 2025-07-24 :[address] [place] [address] 2.2 g/dl (missing) PT - PROTHROMBIN TIME 2025-07-[address] [place] [address] 20.7 secs (missing) PLT - PLATELET COUNT 2025-07-24 :[address] [place] [address] 233 10 3/ul (missing) CARBON DIOXIDE - CO2 2025-07-24 :[address] [place] [address] 27 mmol/l As of April 2023 testing method has changed, this may include reference ranges. RED BLOOD COUNT 2025-07-24 :[address] [place] [address] 3.11 10 6/ul (missing) ALBUMIN 2025-07-[address] [place] [address] 3.6 g/dl As of April 2023 testing method has changed, this may include reference ranges. POTASSIUM 2025-07-24 :[address] [place] [address] 3.7 mmol/l As of April 2023 testing method has changed, this may include reference ranges. HCT - HEMATOCRIT 2025-07-24 :[address] [place] [address] 32.0 % (missing) MEAN CORPUSCULAR HGB CONC 2025-07-24 :[address] [place] [address] 32.5 g/dl (missing) MEAN CORPUSCULAR HEMOGLOBIN 2025-07-[address] [place] [address] 33.4 pg (missing) ANION GAP 2025-07-[address] [place] [address] 5.0 (missing) (missing) NEUTROPHILS # (AUTO) 2025-07-[address] [place] [address] 5.2 10 3/ul (missing) TOTAL PROTEIN 2025-07-24 14:49 [facility] 5.8 g/dl As of April 2023 testing method has changed, this may include reference ranges. GFR - MDRD 2025-07-24 14:49 [facility] 59 (missing) The IDMS-traceable MDRD Study Equation has been validated extensively in and populations between the ages of 18 and 70 with impaired kidney function (eGFR < 60 mL/min/1.73m2) and has shown good performance for patients with all common causes of kidney disease. Although this equation has not been validated for patients older than 70, an MDRD-derived eGFR may still be a useful tool for providers caring for patients older than 70. References: http://www.nkdep.n ih.gov/lab-evaluat ion/gfr/creatinine -stand ardization, last updated December 2011. WHITE BLOOD COUNT 2025-07-24 14:49 [facility] 7.0 x10 3/ul (missing) ALKALINE PHOSPHATASE 2025-07-24 14:49 [facility] 84 iu/l As of April 2023 testing method has changed, this may include reference ranges. CALCIUM 2025-07-24 14:[address] [place] [address] 9.1 mg/dl As of April 2023 testing method has changed, this may include reference ranges. Result panel 2 LACTIC ACID, VENOUS 2025-07-24 15:26 [facility] 1.3 mmol/l N As of April 2023 testing method has changed, this may include reference ranges. Result panel 3 X-ray report 2025-08-14 20:50 [facility] (missing) (mis sing) (missing) Result panel 4 X-ray report 2025-08-14 20:50 [facility] (missing) (mis sing) (missing) Result panel 5 White blood cell count 2025-08-14 21:15:07 [facility] 6 .7 X10^3/uL (missing) Result panel 6 Automated neutrophil % 2025-08-14 21:15:07 [facility] 7 9.4 % (missing) Result panel 7 Automated lymphocyte % 2025-08-14 21:15:07 [facility] 1 2.9 % (missing) Result panel 8 Automated monocyte % 2025-08-14 21:15:07 [facility] 7.1 % (missing) Result panel 9 Automated eosinophil % 2025-08-14 21:15:07 [facility] 0 .0 % (missing) Result panel 10 Automated basophil % 2025-08-14 21:15:07 [facility] 0.6 % (missing) Result panel 11 Absolute neutrophil count 2025-08-14 21:15:07 [facility] l 5400 /uL (missing) Result panel 12 Absolute lymphocyte count 2025-08-14 [facility] ([facility] Result panel 13 Automated blood monocyte count 2025-08-14 21:15:07 [facility] spital 500 /uL (missing) Result panel 14 Automated eosinophil count 2025-08-14 [facility] Result panel 15 Automated basophil count 2025-08-14 21:15:07 [facility] 0 /uL (missing) Result panel 16 Red blood cell count 2025-08-14 21:15:07 [facility] 2.9 9 X10^6/uL (missing) Result panel 17 Serum prothrombin time 2025-08-14 21:15:07 [facility] 3 7.7 SECONDS (missing) Result panel 18 INR in Platelet poor plasma by Coagulation assay 2025-08-14 21:15:07 [facility] 3.4 (missing) (miss ing) Result panel 19 Thromboplastin time, partial (PTT); plasma or whole blood 2025-08-14 21:15:07 [facility] 67 SE CONDS (missing) Result panel 20 Creatine kinase [Enzymatic activity/volume] in Serum or Plasma 2025-08-14 21:15:07 [facility] < 20 U/L (missing) (missing) Result panel 21 Natriuretic peptide.B prohormone N-Terminal [Mass/volume] in Serum or Plasma 2025-08-14 21:15:07 [facility] 3900 pg/mL (miss ing) Result panel 22 Sodium [Moles/volume] in Serum or Plasma 2025-08-14 21:15:07 [facility] 134 mmol/L (m issing) Result panel 23 Potassium [Moles/volume] in Serum or Plasma 2025-08-14 21:15:07 [facility] 3.9 mmol/L (m issing) Result panel 24 Chloride [Moles/volume] in Serum or Plasma 2025-08-14 21:15:07 [facility] 105 mmol/L ([facility]) Result panel 25 Carbon dioxide, total [Moles/volume] in Serum or Plasma 2025-08-14 21:15:07 [facility] 24 mmol/L ([facility]) Result panel 26 Hemoglobin 2025-08-14 21:15:07 [facility] 10.2 g/d L (missing) Result panel 27 Urea nitrogen [Mass/volume] in Serum or Plasma 2025-08-14 21:15:07 [facility] 20 mg/dL ([facility]) Result panel 28 Creatinine [Mass/volume] in Serum or Plasma 2025-08-14 21:15:07 [facility] 1.08 mg/dL ([facility]) Result panel 29 Glomerular filtration rate (GFR) estimation 2025-08-14 21:15:07 [facility] > 60 mL/min (missing) (missing) Result panel 30 BUN/creatinine ratio 2025-08-14 21:15:07 [facility] 18. 5 (missing) (missing) Result panel 31 Glucose [Mass/volume] in Serum or Plasma 2025-08-14 21:15:07 [facility] 123 mg/dL ([facility]) Result panel 32 Calcium [Mass/volume] in Serum or Plasma 2025-08-14 21:15:07 [facility] 9.3 mg/dL ([facility]) Result panel 33 Magnesium [Mass/volume] in Serum or Plasma 2025-08-14 21:15:07 [facility] 1.4 mg/dL ([facility]) Result panel 34 Bilirubin.total [Mass/volume ] in Serum or Plasma 2025-08-14 21:15:07 [facility] 0.9 mg/dL (missing) Result panel 35 Aspartate aminotransferase [Enzymatic activity/volume] in Serum or Plasma 2025-08-14 21:15:07 [facility] 25 IU/L ([facility]) Result panel 36 Alanine aminotransferase [Enzymatic activity/volume] in Serum or Plasma 2025-08-14 21:15:07 [facility] 20 IU/L ([facility]) Result panel 37 Hematocrit 2025-08-14 21:15:07 [facility] 29.9 % (missing) Result panel 38 Alkaline phosphatase [Enzyma tic activity/volume] in Serum or Plasma 2025-08-14 21:15:07 [facility] 105 U/L ([facility]) Result panel 39 Protein total ser/plas 2025-08-14 21:15:07 [facility] 6 .7 g/dL (missing) Result panel 40 Albumin [Mass/volume] in Ser um or Plasma 2025-08-14 21:15:07 [facility] 3.9 g/dL ([facility] ing) Result panel 41 Globulin [Mass/volume] in Serum by calculation 2025-08-14 21:15:07 [facility] 2.8 g/dL (missing) Result panel 42 Albumin/Globulin [Mass Ratio] in Serum or Plasma 2025-08-14 21:15:07 [facility] 1.4 ([facility]) (missing) Result panel 43 Lipase [Enzymatic activity/volume] in Serum or Plasma 2025-08-14 21:15:07 [facility] 58 U/L ([facility]) Result panel 44 White blood cell count 2025-08-14 21:15:07 [facility] 6 .7 X10^3/uL (missing) Result panel 45 Red blood cell count 2025-08-14 21:15:07 [facility] 2.9 9 X10^6/uL (missing) Result panel 46 Hemoglobin 2025-08-14 21:15:07 [facility] 10.2 g/d L (missing) Result panel 47 MCV (mean corpuscular volume ) determination 2025-08-14 21:15:07 [facility] 99.9 fL (mis sing) Result panel 48 Hematocrit 2025-08-14 21:15:07 [facility] 29.9 % (missing) Result panel 49 MCV (mean corpuscular volume ) determination 2025-08-14 21:15:07 [facility] 99.9 fL (mis sing) Result panel 50 Mean corpuscular hemoglobin (MCH) determination 2025-08-14 21:15:07 [facility] 34.1 PG (missing) Result panel 51 Mean corpuscular hemoglobin concentration (MCHC) determination 2025-08-14 21:15:07 [facility] 34.1 % (mis sing) Result panel 52 Red cell distribution width determination 2025-08-14 21:15:07 [facility] 14.9 % (mis sing) Result panel 53 Platelet count 2025-08-14 21:15:07 [facility] 252 X10^3/uL (missing) Result panel 54 Automated neutrophil % 2025-08-14 21:15:07 [facility] 7 9.4 % (missing) Result panel 55 Automated lymphocyte % 2025-08-14 21:15:07 [facility] 1 2.9 % (missing) Result panel 56 Automated monocyte % 2025-08-14 21:15:07 [facility] 7.1 % (missing) Result panel 57 Automated eosinophil % 2025-08-14 21:15:07 [facility] 0 .0 % (missing) Result panel 58 Mean corpuscular hemoglobin (MCH) determination 2025-08-14 21:15:07 [facility] 34.1 PG (missing) Result panel 59 Automated basophil % 2025-08-14 21:15:07 [facility] 0.6 % (missing) Result panel 60 Absolute neutrophil count 2025-08-14 21:15:07 [facility] l 5400 /uL (missing) Result panel 61 Absolute lymphocyte count 2025-08-14 21:15:07 [facility] l 900 /uL (missing) Result panel 62 Automated blood monocyte count 2025-08-14 21:15:07 [facility] spital 500 /uL (missing) Result panel 63 Automated eosinophil count 2025-08-14 [facility] Result panel 64 Automated basophil count 2025-08-14 21:15:07 [facility] 0 /uL (missing) Result panel 65 Thromboplastin time, partial (PTT); plasma or whole blood 2025-08-14 21:15:07 [facility] 67 SE CONDS (missing) Result panel 66 Creatine kinase [Enzymatic activity/volume] in Serum or Plasma 2025-08-14 21:15:07 [facility] < 20 U/L (missing) (missing) Result panel 67 Natriuretic peptide.B prohormone N-Terminal [Mass/volume] in Serum or Plasma 2025-08-14 21:15:07 [facility] 3900 pg/mL (miss ing) Result panel 68 Mean corpuscular hemoglobin concentration (MCHC) determination 2025-08-14 21:15:07 [facility] 34.1 % (mis sing) Result panel 69 Lipase [Enzymatic activity/volume] in Serum or Plasma 2025-08-14 21:15:07 [facility] 58 U/L (miss ing) Result panel 70 Red cell distribution width determination 2025-08-14 21:15:07 [facility] 14.9 % (mis sing) Result panel 71 Platelet count 2025-08-14 21:15:07 [facility] 252 X10^3/uL (missing) Result panel 72 Basophils Absolute Auto 2025-08-14 21:22 [facility] 0 /ul (missing) Eosinophils Absolute Auto 2025-08-14 21:22 [facility] 0 /ul (missing) Eosinophils Percent Auto 2025-08-14 21:22 [facility] 0. 0 % (missing) Basophils Percent Auto 2025-08-14 21:22 [facility] 0.6 % (missing) Hemoglobin 2025-08-14 21:22 [facility] 10.2 g/dl (missing) Lymphocytes Percent Auto 2025-08-14 21:22 [facility] 12 .9 % (missing) Red Cell Distribution Width 2025-08-14 21:22 [facility] 14.9 % (missing) Red Blood Cell Count 2025-08-14 21:22 [facility] 2.99 x10 6/ul (missing) Platelet Count 2025-08-14 21:22 [facility] 252 x1 0 3/ul (missing) Hematocrit 2025-08-14 21:22 [facility] 29.9 % (missing) Mean Corpuscular HGB Conc 2025-08-14 21:22 [facility] 3 4.1 % (missing) Mean Corpuscular Hemoglobin 2025-08-14 21:22 [facility] 34.1 pg (missing) Monocytes Absolute Auto 2025-08-14 21:22 [facility] 500 /ul (missing) Neutrophils Absolute Auto 2025-08-14 21:22 [facility] 5 400 /ul (missing) White Blood Cell Count 2025-08-14 21:22 [facility] 6.7 x10 3/ul (missing) Monocytes Percent Auto 2025-08-14 21:22 [facility] 7.1 % (missing) Neutrophils Percent Auto 2025-08-14 21:22 [facility] 79 .4 % (missing) Lymphocytes Absolute Auto 2025-08-14 21:22 [facility] 9 00 /ul (missing) Mean Corpuscular Volume 2025-08-14 21:22 [facility] 99. 9 fl (missing) Result panel 73 INR 2025-08-14:31 [facility] 3.4 (missin g) (missing) Prothrombin Time 2025-08-14:31 [facility] 37.7 seconds Comment If patient is on warfarin Result panel 74 Estimated Glomerular Filt Rate 2025-08-14 21:[address] [place] [address] > 60 ml/min Reported eGFR is based the CKD-EPI 2020 equation that does not use a race coefficient. An eGFR below 60 mL/min/1.73m2 suggests that some kidney damage has occurred, and indicative of chronic kidney disease if persisting greater than 3 months. An eGFR less than 15 is indicative of kidney failure. Creatine Kinase 2025-08-14:[address] [place] [address] < 20 u/l Physician Instructions if pt has history of CHF Bilirubin Total 2025-08-14 21:[address] [place] [address] 0.9 mg/dl (missing) Creatinine 2025-08-14 21:[address] [place] [address] 1.08 mg/dl (missing) Albumin Globulin Ratio 2025-08-14 21:[address] [place] [address] 1.4 (missing) (missing) Magnesium 2025-08-14 21:[address] [place] [address] 1.4 mg/dl Physician Instructions if pt has history of CHF Chloride 2025-08-14 21:[address] [place] [address] 105 mmol/l (missing) Alkaline Phosphatase 2025-08-14 21:[address] [place] [address] 105 u/l (missing) Glucose 2025-08-14 21:[address] [place] [address] 123 mg/dl (missing) Sodium 2025-08-14 21:[address] [place] [address] 134 mmol/l Physician Instructions if pt has history of CHF BUN Creatinine Ratio 2025-08-14 21:[address] [place] [address] 18.5 (missing) (missing) Globulin 2025-08-14 21:[address] [place] [address] 2.8 g/dl (missing) Alanine Aminotransferase 2025-08-14:[address] [place] [address] 20 iu/l (missing) Blood Urea Nitrogen 2025-08-14 21:[address] [place] [address] 20 mg/dl (missing) Carbon Dioxide 2025-08-14 21:[address] [place] [address] 24 mmol/l (missing) Aspartate Aminotransferase 2025-08-14 21:[address] [place] [address] 25 iu/l (missing) INR 2025-08-14 21:[address] [place] [address] 3.4 (missing) (missing) Albumin 2025-08-14 21:[address] [place] [address] 3.9 g/dl (missing) Potassium 2025-08-14 21:[address] [place] [address] 3.9 mmol/l (missing) Prothrombin Time 2025-08-14 21:[address] [place] [address] 37.7 seconds Comment If patient is on warfarin Lipase 2025-08-[address] [place] [address] 58 u/l Physician Instructions if pt has history of CHF Total Protein 2025-08-14 21:[address] [place] [address] 6.7 g/dl (missing) PTT Partial Thromboplastin Shaq 2025-08-14 21:[address] [place] [address] 67 seconds Comment If patient is on warfarin Adjunctive to Coronary Thrombosis Heparin (0.1 - 0.3 UI/mL) = 40.8 - 62.7 seconds Heparin (0.3 - 0.7 UI/mL) = 62.7 - 106.4 seconds. Calcium 2025-08-14 21:[address] [place] [address] 9.3 mg/dl (missing) Result panel 75 Estimated Glomerular Filt Rate 2025-08-14 21:[address] [place] [address] > 60 ml/min Reported eGFR is based the CKD-EPI 2020 equation that does not use a race coefficient. An eGFR below 60 mL/min/1.73m2 suggests that some kidney damage has occurred, and indicative of chronic kidney disease if persisting greater than 3 months. An eGFR less than 15 is indicative of kidney failure. Creatine Kinase 2025-08-14:[address] [place] [address] < 20 u/l Physician Instructions if pt has history of CHF Troponin I 2025-08-14 21:[address] [place] [address] 0.024 ng/ml Ortho Troponin-I Recommended Upper Reference Range & Cutoff The 99th Percentile URL: 0.034 ng/mL AMI Diagnostic Cutoff: 0.120 ng/mL Bilirubin Total 2025-08-14 :[address] [place] [address] 0.9 mg/dl (missing) Creatinine 2025-08-14 :[address] [place] [address] 1.08 mg/dl (missing) Albumin Globulin Ratio 2025-08-14 :[address] [place] [address] 1.4 (missing) (missing) Magnesium 2025-08-14 21:[address] [place] [address] 1.4 mg/dl Physician Instructions if pt has history of CHF Chloride 2025-08-14 21:[address] [place] [address] 105 mmol/l (missing) Alkaline Phosphatase 2025-08-14 :[address] [place] [address] 105 u/l (missing) Glucose 2025-08-14 :[address] [place] [address] 123 mg/dl (missing) Sodium 2025-08-14 :[address] [place] [address] 134 mmol/l Physician Instructions if pt has history of CHF BUN Creatinine Ratio 2025-08-14 :[address] [place] [address] 18.5 (missing) (missing) Globulin 2025-08-14 21:[address] [place] [address] 2.8 g/dl (missing) Alanine Aminotransferase 2025-08-14 21:[address] [place] [address] 20 iu/l (missing) Blood Urea Nitrogen 2025-08-14 21:[address] [place] [address] 20 mg/dl (missing) Carbon Dioxide 2025-08-14 :[address] [place] [address] 24 mmol/l (missing) Aspartate Aminotransferase 2025-08-14 21:[address] [place] [address] 25 iu/l (missing) Albumin 2025-08-14 :[address] [place] [address] 3.9 g/dl (missing) Potassium 2025-08-14 21:[address] [place] [address] 3.9 mmol/l (missing) NT-proBNP (BNP-Adult 18+) 2025-08-14 :[address] [place] [address] 3900 pg/ml Physician Instructions if pt has history of CHF The following cut-points have been suggested for the use of proBNP for the diagnostic evaluation of heart failure (HF) in patients with acute dyspnea: Modality Age in Years Optimal Cut-Off -------- Heart Failure Unlikely: Exclusion Age Independent 300 pg/mL Heart Failure Likely: Diagnostic <50 450 pg/mL 50-75 900 pg/mL >75 1800 pg/mL The 300 pg/mL age-independent rule-out cutoff can be used to identify ED patients in whom HF (heart failuire) is unlikely and who need further investigations for non-cardiac causes of dyspnea. The natriuretic peptides values increase with age, therefore, applying age-dependent rule-in cutoffs (450, 900, and 1800 pg/mL) increases the specificity and positive predictive value for diagnosing patients in whom HF is likely. As mild natriuretic peptides elevations can be caused by non-HF conditions, VITROS NT-proBNP II test results between the exclusion and the diagnosis cutoffs should be considered in the context of the clinical presentation and physical examination in order to correctly identify or exclude HF. Lipase 2025-08-14:[address] [place] [address] 58 u/l Physician Instructions if pt has history of CHF Total Protein 2025-08-14:[address] [place] [address] 6.7 g/dl (missing) Calcium 2025-08-14 :[address] [place] [address] 9.3 mg/dl (missing) Result panel 76 Troponin I.cardiac [Mass/volume] in Serum or Plasma 2025-08-14 23:34:07 [facility] 0.022 ng/mL ([facility]) Result panel 77 Troponin I.cardiac [Mass/volume] in Serum or Plasma 2025-08-14 23:34:07 [facility] 0.022 ng/mL ([facility]) Result panel 78 Troponin I 2025-08-15 00:13 [facility] 0.022 ng/ml Ortho Troponin-I Recommended Upper Reference Range & Cutoff The 99th Percentile URL: 0.034 ng/mL AMI Diagnostic Cutoff: 0.120 ng/mL Result panel 79 Emergency department note 2025-08-15 04:42 [facility] (missing) (missing) (missing ) Result panel 80 Hemoglobin A1c [facility]15 [facility] (missing) Result panel 81 Thyrotropin [Units/volume] in Serum or Plasma by Detection limit <= 0.05 mIU/L 2025-08-15 06:11:07 [facility] 2.22 uIU/mL ([facility]) Result panel 82 Estimated Glomerular Filt Rate 2025-08-15 06:50 [facility] > 60 ml/min Reported eGFR is based the CKD-EPI 2020 equation that does not use a race coefficient. An eGFR below 60 mL/min/1.73m2 suggests that some kidney damage has occurred, and indicative of chronic kidney disease if persisting greater than 3 months. An eGFR less than 15 is indicative of kidney failure. Bilirubin Total 2025-08-15 06:50 [facility] 0.7 mg/dl (missing) Creatinine 2025-08-15 06:50 [facility] 1.14 mg/dl (missing) Albumin Globulin Ratio 2025-08-15 06:[address] [place] [address] 1.4 (missing) (missing) Magnesium 2025-08-15 06:[address] [place] [address] 1.9 mg/dl (missing) Chloride 2025-08-15 06:50 [facility] 105 mmol/l (missing) Sodium 2025-08-15 06:50 [facility] 135 mmol/l (missing) BUN Creatinine Ratio 2025-08-15 06:[address] [place] [address] 17.5 (missing) (missing) Alanine Aminotransferase 2025-08-15 06:50 [facility] 19 iu/l (missing) Globulin 2025-08-15 06:50 [facility] 2.8 g/dl (missing) Blood Urea Nitrogen 2025-08-15 06:50 [facility] 20 mg/dl (missing) Carbon Dioxide 2025-08-15 06:50 [facility] 23 mmol/l (missing) Aspartate Aminotransferase 2025-08-15 06:50 [facility] 25 iu/l (missing) Albumin 2025-08-15 06:50 [facility] 3.8 g/dl (missing) Potassium 2025-08-15 06:50 [facility] 3.9 mmol/l (missing) Hemoglobin A1C% w Est Avg Glu 2025-08-15 06:50 [facility] 4.2 % Hemoglobin A1c Estimated Average Glucose (mg/dl) 5% 97 6% 126 7% 154 8% 183 9% 212 10% 240 11% 269 12% 298 Individuals with Hemoglobin (Hb)A1c between 5.7-6.4% are at increased risk for diabetes. Total Protein 2025-08-15 06:50 [facility] 6.6 g/dl (missing) Calcium 2025-08-15 06:50 [facility] 8.9 mg/dl (missing) Glucose 2025-08-15 06:50 [facility] 98 mg/dl (missing) Alkaline Phosphatase 2025-08-15 06:50 [facility] 99 u/l (missing) Result panel 83 CAT scan report 2025-08-15 07:07 [facility] (missing) ( missing) (missing) Result panel 84 Thyroid Stimulating Hormone 2025-08-15 07:35 [facility] 2.22 uiu/ml (missing) Result panel 85 Echocardiography report 2025-08-15 08:32 [facility] (mi ssing) (missing) (missing) Result panel 86 POC Glucose 2025-08-15 09:58 [facility] 107 mg/dl (missing) Result panel 87 POC Glucose 2025-08-15 12:00 [facility] 124 mg/dl (missing) Result panel 88 POC Glucose 2025-08-15 16:33 [facility] 107 mg/dl (missing) Result panel 89 INR 2025-08-15 17:01 [facility] 3.5 (missin g) (missing) Prothrombin Time 2025-08-15 17:01 [facility] 38.1 seconds (missing) Result panel 90 POC Glucose 2025-08-15 19:48 [facility] 112 mg/dl (missing) Result panel 91 Serum prothrombin time 2025-08-16 04:32:07 [facility] 3 0.4 SECONDS (missing) Result panel 92 INR in Platelet poor plasma by Coagulation assay 2025-08-16 04:32:07 [facility] 2.8 (missing) (miss ing) Result panel 93 Sodium [Moles/volume] in Serum or Plasma 2025-08-16 04:32:07 [facility] 135 mmol/L ([facility]) Result panel 94 Potassium [Moles/volume] in Serum or Plasma 2025-08-16 04:32:07 [facility] 3.9 mmol/L ([facility]) Result panel 95 Chloride [Moles/volume] in Serum or Plasma 2025-08-16 04:32:07 [facility] 104 mmol/L ([facility]) Result panel 96 Carbon dioxide, total [Moles/volume] in Serum or Plasma 2025-08-16 04:32:07 [facility] 24 mmol/L ([facility]) Result panel 97 Urea nitrogen [Mass/volume] in Serum or Plasma 2025-08-16 04:32:07 [facility] 24 mg/dL ([facility]) Result panel 98 Creatinine [Mass/volume] in Serum or Plasma 2025-08-16 04:32:07 [facility] 1.15 mg/dL ([facility]) Result panel 99 Glomerular filtration rate (GFR) estimation 2025-08-16 04:32:07 [facility] > 60 mL/min (missing) (missing) Result panel 100 BUN/creatinine ratio 2025-08-16 04:32:07 [facility] 20. 9 (missing) (missing) Result panel 101 Glucose [Mass/volume] in Ser um or Plasma 2025-08-16 04:32:07 [facility] 92 mg/dL ([facility]) Result panel 102 Calcium [Mass/volume] in Serum or Plasma 2025-08-16 04:32:07 [facility] 8.8 mg/dL ([facility]) Result panel 103 Magnesium [Mass/volume] in Serum or Plasma 2025-08-16 04:32:07 [facility] 1.7 mg/dL ([facility]) Result panel 104 Bilirubin.total [Mass/volume ] in Serum or Plasma 2025-08-16 04:32:07 [facility] 0.6 mg/dL (missing) Result panel 105 Aspartate aminotransferase [Enzymatic activity/volume] in Serum or Plasma 2025-08-16 04:32:07 [facility] 35 IU/L ( issing) Result panel 106 Alanine aminotransferase [Enzymatic activity/volume] in Serum or Plasma 2025-08-16 04:32:07 [facility] 22 IU/L (m issing) Result panel 107 Alkaline phosphatase [Enzyma tic activity/volume] in Serum or Plasma 2025-08-16 04:32:07 [facility] 99 U/L (miss ing) Result panel 108 Protein total ser/plas 2025-08-16 04:32:07 [facility] 6 .6 g/dL (missing) Result panel 109 Albumin [Mass/volume] in Ser um or Plasma 2025-08-16 04:32:07 [facility] 3.9 g/dL ([facility] ing) Result panel 110 Globulin [Mass/volume] in Serum by calculation 2025-08-16 04:32:07 [facility] 2.7 g/dL (missing) Result panel 111 Albumin/Globulin [Mass Ratio] in Serum or Plasma 2025-08-16 04:32:07 [facility] 1.4 ([facility] ing) (missing) Result panel 112 INR 2025-08-16 05:37 [facility] ([facility]) Prothrombin Time 2025-08-16 05:37 [facility] 30.4 seconds Delta: 38.1 on 08/15/25-1622 Result panel 113 Estimated Glomerular Filt Rate 2025-08-16 05:39 [facility] > 60 ml/min Reported eGFR is based the CKD-EPI 2020 equation that does not use a race coefficient. An eGFR below 60 mL/min/1.73m2 suggests that some kidney damage has occurred, and indicative of chronic kidney disease if persisting greater than 3 months. An eGFR less than 15 is indicative of kidney failure. Bilirubin Total 2025-08-16 05:39 [facility] 0.6 mg/dl (missing) Creatinine 2025-08-16 05:39 [facility] 1.15 mg/dl (missing) Albumin Globulin Ratio 2025-08-16 05:39 [facility] 1.4 (missing) (missing) Magnesium 2025-08-16 05:39 [facility] 1.7 mg/dl (missing) Chloride 2025-08-16 05:39 [facility] 104 mmol/l (missing) Sodium 2025-08-16 05:39 [facility] 135 mmol/l (missing) Globulin 2025-08-16 05:39 [facility] 2.7 g/dl (missing) BUN Creatinine Ratio 2025-08-16 05:39 [facility] 20.9 (missing) (missing) Alanine Aminotransferase 2025-08-16 05:39 [facility] 22 iu/l (missing) Blood Urea Nitrogen 2025-08-16 05:39 [facility] 24 mg/dl (missing) Carbon Dioxide 2025-08-16 05:39 [facility] 24 mmol/l (missing) Albumin 2025-08-16 05:39 [facility] 3.9 g/dl (missing) Potassium 2025-08-16 05:39 [facility] 3.9 mmol/l (missing) Aspartate Aminotransferase 2025-08-16 05:39 [facility] 35 iu/l (missing) Total Protein 2025-08-16 05:39 [facility] 6.6 g/dl (missing) Calcium 2025-08-16 05:39 [facility] 8.8 mg/dl (missing) Glucose 2025-08-16 05:39 [facility] 92 mg/dl (missing) Alkaline Phosphatase 2025-08-16 05:39 [facility] 99 u/l (missing) Result panel 114 POC Glucose 2025-08-16 07:37 [facility] 91 mg/dl (missing) Result panel 115 POC Glucose 2025-08-16 11:27 [facility] 108 mg/dl (missing) Social History date description facility 2025-08-14 00:00 Never smoked tobacco (finding) [facility] 2025-08-15 00:00 Never smoked tobacco (finding) [facility] Vital Signs date measurement value units 2025-08-14 00:00 BMI 29.5 kg/m2 2025-08-14 00:00 height_metric 175.26 cm 2025-08-14 00:00 temperature_standard 97.7 F 2025-08-14 00:00 weight_metric 90.71 kg 2025-08-15 00:00 BP_diastolic 53 mmHg 2025-08-15 00:00 BP_systolic 103 mmHg 2025-08-15 00:00 heart_rate 83 /min 2025-08-15 00:00 height_metric 175.26 cm 2025-08-15 00:00 o2_saturation 98 % 2025-08-15 00:00 respiration_rate 21 /min 2025-08-16 00:00 BP_diastolic 54 mmHg 2025-08-16 00:00 BP_systolic 98 mmHg 2025-08-16 00:00 heart_rate 63 /min 2025-08-16 00:00 o2_saturation 96 % 2025-08-16 00:00 respiration_rate 16 /min 2025-08-16 00:00 temperature_standard 97.1 F 2025-08-16 00:00 weight_metric 93.40 kg
--- NOTE | 2025-10-02 11:53 | ED Physician Documentation ---
History of Present Illness Stated complaint Stated Complaint: BACK PX/WEAKNESS Chief complaint Chief Complaint: Back Pain Additonal information Additional information: This is a very nice 80-year-old gentleman who has a history per chart review of hypertension, ischemic cardiomyopathy, CAD, atrial fibrillation on warfarin, hyperlipidemia, and polyarthritis. He presents today with low back pain and urinary incontinence for the last week or so. He called his doctor today stating he needed to come into the hospital, she went to try to retrieve them at his house but he was too weak and therefore she called EMS. The patient states he has had bilateral lower extremity weakness so has chronic weakness in this area, it has been worse the last few days. He does believe he fell about 2 days ago but did not feel like he injured himself. He has not had any chest pain or difficulty breathing, has had decreased appetite but no vomiting, he has noticed that sometimes it is difficult to pass urine and sometimes it is painful to pass urine. He has not had any diarrhea or constipation. Review of Systems Status of ROS: 10 or more systems reviewed and unremarkable except as noted in history and below Constitutional Reports: Weakness; Denies: Fever or Chills Ears, nose, mouth, and throat Denies: Neck pain Cardiovascular Denies: chest pain, palpitations, lightheadedness or shortness of breath with exertion Respiratory Denies: Shortness of breath or Cough Gastrointestinal Reports: Nausea and Poor appetite; Denies: Abdominal pain, Abdominal distention, Vomiting, Haile blood emesis, Rectal bleeding or Rectal pain Genitourinary Reports: Painful urination, Flank pain, Incontinence, Urinary frequency and Urinary urgency Musculoskeletal Reports: Back pain; Denies: Neck pain or Extremity pain Integumentary/Breast Denies: Rash or Itching Hematologic/Lymphatic Denies: Easy bruising or Easy bleeding Meds/Allgy Home Medications Ambulatory Orders Medication Instructions Recorded Confirmed isosorbide mononitrate 120 mg 120 mg PO QAM #90 tabs 1 11/01/23 07/24/25 tablet,extended release 24 hr leflunomide 20 mg tablet 20 mg PO QDAY #90 tabs 09/0107/24/25 nitroglycerin 0.4 mg sublingual 0.4 mg sublingual Q5M PRN chest 09/01/24 07/24/25 tablet pain #25 tabs omeprazole 20 mg capsule,delayed 20 mg PO QDAY #90 cap s 09/01/24 07/24/25 release prednisone 2.5 mg tablet 2.5 mg PO QDAY #90 tabs 08/1607/24/25 sulfasalazine 500 mg tablet 1 g (2 x 500 mg) PO BID 3 months 09/01/24 07/24/25 #360 tabs carvedilol 3.125 mg tablet 3.125 mg PO BID #180 tabs 0 04/29/25 07/24/25 furosemide 20 mg tablet mg 07/24/25 atorvastatin 80 mg tablet (Lipitor) 80 mg PO QDAY #90 tabs 08/15/25 warfarin 2 mg tablet See Rx Instructions .Route 1 11/17/24 09/17/25 .COMPLEX #90 tabs Allergies Allergies Allergy/AdvReac Type Severity Reaction Status Date / Time amiodarone AdvReac Severe cardiac Verified 10/02/25 11:53 conduction issue PFSH Active Problems All Active Problems (Updated 10/02/25 @ 21:38 by ARIANNE Mejia) Acute anemia (Acute) Acute pyelonephritis (Acute) Anemia (Chronic) Acute kidney injury (Acute) Pyelonephritis (Acute) Hypotension (Acute) Skin breakdown (Acute) Chronic edema (Acute) Essential (primary) hypertension (Acute) Ischemic cardiomyopathy (Acute) CAD, multiple vessel (Acute) Permanent atrial fibrillation (Acute) Anticoagulated on warfarin (Acute) Mixed hyperlipidemia (Chronic) Prediabetes (Acute) Severe obesity with body mass index (BMI) of 36.0 to 36.9 with serious comorbidity (Acute) Anemia of chronic disease (Acute) Inflammatory polyarthritis (Acute) Bilateral primary osteoarthritis of knee (Acute) Medical History Medical History (Updated 10/02/25 @ 21:38 by ARIANNE Mejia) Shortness of breath 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 Hx of ventricular tachycardia 2001 s/p AICD + replaced 2009, associated with CAD 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, apical aneursym repaired Hx of skin cancer, basal cell Surgical History Surgical History H/O coronary angiogram 01/2016, patent grafts Implantable cardioverter-defibrillator (ICD) generator end of life 2012, replaced, has bothersome left diaphramatic capture H/O coronary angiogram 08/2010, patent grafts Status post biventricular pacemaker 11/2009, + AICD H/O hemorrhoidectomy 10/2007 S/P cholecystectomy 06/2007 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 (Date/Year): n/a Number of Years Smoked: 0 How many cigarettes a day do you smoke? (20 cigarettes=1 Pk): 0 Second hand tobacco smoke exposure: No Do you dip or chew tobacco?: No Do you vape?: No Patient requests smoking cessation consult: No Initiate information on smoking cessation: No Living arrangement: At home Marital Status: Living Condition: Alone Support Person: Yes Relationship Notes: Daughter helps take care of me (he drives to her house 1x/ week). She helps him with his pills. 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 HENMT normocephalic and head/scalp atraumatic Mucous membranes are dry Respiratory breath sounds equal bilaterally, normal respiratory effort, clear to auscultation bilaterally, no wheezes and no rales Cardiovascular normal heart rate noted, regular rhythm noted and no murmur Gastrointestinal abdomen normal to inspection, abdomen soft to palpation, nondistended and normoactive bowel sounds Rectal exam essentially normal, no haile blood, no masses, Normal rectal tone. Assisted by RN outreach team member Genitourinary CVA tenderness noted and bladder abnormal to palpation Bladder distended on initial exam. Bilateral CVAT. Back/Pelvis spine normal to inspection, no thoracic spine tenderness and no lumbar spine tenderness Extremities normal to inspection and normal to palpation Normal sensation in all extremities. He has generalized weakness but no focal weakness. Psychiatry mental status grossly normal and oriented x3 Skin skin color normal and no rash Results Vitals Vitals: Vital Signs - 24 hr 10/02/25 11:53 10/02/25 12:53 10/02/25 12:57 Temperature 36.7 C Temperature Source Temporal Artery Scan Pulse Rate 80 74 Pulse Rate [Monitoring electrodes] Respiratory Rate 18 21 Blood Pressure 84/46 L 97/43 L Blood Pressure [Left Automatic] O2 Saturation 96 95 O2 Source Room air Room air Sedation scale Pain Intensity 6 6 6 10/02/25 13:52 10/02/25 13:56 10/02/25 14:00 Temperature 36.4 C L Temperature Source Temporal Artery Scan Pulse Rate 70 Pulse Rate [Monitoring electrodes] Respiratory Rate 18 20 18 Blood Pressure 105/52 L 143/84 H Blood Pressure [Left Automatic] 105/52 L O2 Saturation 96 94 99 O2 Source Room air Room air Room air Sedation scale 0-Fully awake Pain Intensity 10/02/25 14:12 10/02/25 14:47 10/02/25 14:47 Temperature 36.3 C L 36.6 C Temperature Source Temporal Artery Scan Temporal Artery Scan Pulse Rate 77 Pulse Rate [Monitoring electrodes] 67 Respiratory Rate 18 18 18 Blood Pressure 102/57 L Blood Pressure [Left Automatic] 112/52 L 102/57 L O2 Saturation 97 98 96 O2 Source Room air Room air Room air Sedation scale 0-Fully awake 0-Fully awake Pain Intensity 3 0 10/02/25 15:20 10/02/25 15:31 10/02/25 16:00 Temperature Temperature Source Pulse Rate 77 76 Pulse Rate [Monitoring electrodes] Respiratory Rate 18 18 Blood Pressure 103/60 100/55 L Blood Pressure [Left Automatic] O2 Saturation 96 96 O2 Source Room air Room air Sedation scale Pain Intensity 3 10/02/25 16:38 Temperature 36.6 C Temperature Source Temporal Artery Scan Pulse Rate Pulse Rate [Monitoring electrodes] 75 Respiratory Rate 19 Blood Pressure Blood Pressure [Left Automatic] 93/51 L O2 Saturation 96 O2 Source Room air Sedation scale 0-Fully awake Pain Intensity Oxygen O2 Source Room air Labs Labs: Microbiology 10/02/25 13:21 Occult Blood - Final Stool Laboratory Tests 10/02/25 10/02/25 10/02/25 12:09 12:37 14:11 WBC 7.4 RBC 2.15 L Hgb 7.4 L Hct 23.5 L MCV 109.3 H MCH 34.4 H MCHC 31.5 L RDW 13.4 Plt Count 277 MPV 10.1 Neut # (Auto) 6.3 Lymph # (Auto) 0.5 L [place] # (Auto) 0.6 Eos # (Auto) 0.0 Baso # (Auto) 0.0 Absolute Nucleated RBC 0.00 Nucleated RBC % 0.0 Sodium 136 Potassium 3.6 Chloride 111 Carbon Dioxide 17 L Anion Gap 8.0 BUN 27 H Creatinine 1.8 H Estimated GFR (MDRD) 37 L Glucose 124 H Lactic Acid 1.6 Calcium 7.7 L Total Bilirubin 0.6 AST 22 ALT 40 Alkaline Phosphatase 178 H Total Protein 4.9 L Albumin 2.7 L Globulin 2.2 Albumin/Globulin Ratio 1.2 Lipase 32 Urine Color Yellow Urine Clarity TURBID Urine pH 5.5 Ur Specific [place] 1.010 Urine Protein 100 H Urine Glucose (UA) Negative Urine Ketones Negative Urine Occult Blood Moderate Urine Nitrite Negative Urine Bilirubin Negative Urine Urobilinogen 0.2 (NORMAL) Ur Leukocyte Esterase Large Urine RBC 11-25 H Urine WBC >25 H Ur Squamous Epith Cells NONE SEEN Urine Bacteria Moderate H Urine Mucus Moderate Strands Ur Microscopic Review INDICATED Urine Culture Comments INDICATED Blood Type A POSITIVE Antibody Screen NEGATIVE Crossmatch IS Only See Detail Rads (name of study) CT abd pelvis: Relevant Findings:: Final report received Interpretation: IMPRESSION: 1. Findings are consistent with development of acute right pyelonephritis, pyelitis, ureteritis, and cystitis. 2. Extensive diverticulosis without evidence of acute diverticulitis. PD Medical Decision Making ED course Complexity details: reviewed old records, reviewed results, re-evaluated patient, considered differential, d/w patient and d/w family ED course: This is a very nice 80-year-old gentleman with past medical history as listed above who presented with weakness and low back pain as well as urinary incontinence as described in HPI. On arrival, the patient was hypotensive, and therefore sepsis workup was undertaken. We also gave the patient 1 L normal saline. Lab workup revealed a white blood count of 7.4, his hemoglobin was 7.4 as well hematocrit 23.5, platelets 277, chemistry shows a sodium 136 potassium 3.6 CO2 17, BUN 27 creatinine 1.8 which is up from his baseline, GFR down to 37, glucose was 124, lactic acid was normal at 1.6, calcium low at 7.7, alk phos at 178, albumin 2.7, urinalysis was frankly purulent, and shows large leuk esterase, greater than 25 WBC, no squamous cells and moderate bacteria. This was sent for culture. The patient remains somewhat hypotensive after 1 L normal saline, recommended transfusion given patient's history and hemoglobin 7.4. The patient was consented for transfusion and given 1 unit RBCs. We also started ceftriaxone for UTI. The patient was sent for CT given his low back pain and concern for possible pyelonephritis. CT shows a right sided pyelonephritis, pyelitis, cystitis. I have recommended hospitalization for this and patient agreeable to stay. I had spoken with the hospitalist, Dr. Nagi Hart, who very kindly will see this patient. Discharge Plan Discharge Patient Disposition: [facility] DC/Xfer Clinical Impression: Acute pyelonephritis, Acute anemia Interventions: ED Admission Assessment Last Done: 10/02/25 17:47
[2025-10-02 12:17] LABS: HCT - HEMATOCRIT 23.5 % (42.0-52.0); HGB - HEMOGLOBIN 7.4 g/dL (14.0-18.0); MEAN PLATELET VOLUME 10.1 fL (7.4-11.4); NRBC ABSOLUTE COUNT (AUTO) 0.00 x10^3/uL; NUCLEATED RED BLOOD CELLS AUTO 0.0 /100WBC; PLT - PLATELET COUNT 277 10^3/uL (130-450); RED CELL DISTRIBUTION WIDTH 13.4 % (12.0-15.0)
[2025-10-02 12:32] LABS: ALT ALANINE AMINOTRANSFERASE 40.0 IU/L (10-60); AST ASPARTATE AMINOTRANSFERASE 22.0 IU/L (10-42); BUN - BLOOD UREA NITROGEN 27.0 mg/dL (6-20); CARBON DIOXIDE - CO2 17.0 mmol/L (21-32); CREATININE 1.8 mg/dL (0.6-1.3); GFR - MDRD 37.0 (>89)
[2025-10-02] MEDS: fentaNYL 100 MCG/2 ML VIAL IVP STA (12:53)
[2025-10-02] MEDS: SODIUM CHLORIDE 0.9% 1,000 ML IV ONE (12:53)
[2025-10-02 15:05] LABS: GLUCOSE, URINE (UA) Negative (NEGATIVE); KETONES,URINE (UA) Negative (NEGATIVE); OCCULT BLOOD,URINE Moderate (NEGATIVE)
[2025-10-02 15:09] LABS: SQUAMOUS EPITHELIAL CELL,UR NONE SEEN (<= Few)
[2025-10-02] MEDS: cefTRIAXone 1 GM in SODIUM CHLORIDE 0.9% MINIBAG 100 ML IV STA (15:46)
--- NOTE | 2025-10-02 16:21 | CT Report ---
PROCEDURE: CT Abdomen/Pelvis W INDICATIONS: flank pain, purulent urine CONTRAST: 100ml omni 300 TECHNIQUE: After the administration of intravenous contrast, a CT scan of the abdomen and pelvis was performed. Images were recorded and evaluated at appropriate window settings. Reformats: coronal and sagittal. For radiation dose reduction, the following was used: automated exposure control, adjustment of mA and/or kV according to patient size. COMPARISON: 07/24/2025 FINDINGS: Image quality: Diagnostic. Lower chest: Cardiomegaly, pacemaker. Extreme lung bases are clear.. Liver: No solid mass. Gallbladder: Absent Biliary tree: No intrahepatic or extrahepatic dilation, accounting for age. Spleen: No splenomegaly. Pancreas: No pancreatic ductal dilation. Adrenals: No adrenal nodule. Kidneys and ureters: Development of enhancement of the wall of the left renal pelvis and ureter and inflammatory change subjacent to the ureter and mild dilatation of the ureter. Findings are consistent with pyelitis and ureteritis. Ill-defined hypodensity has developed in the right kidney suggesting possible right pyelonephritis. Stomach, bowel and peritoneum: No gastric or small bowel dilation. No abnormal wall thickening. No pathologic free fluid. Extensive sigmoid diverticulosis without evidence of acute diverticulitis. Lymph nodes: No central or retroperitoneal adenopathy. Vessels: No infrarenal aortic aneurysm. Patent portal vein. PELVIS Reproductive organs: Mild prostatic megaly. Bladder: A Arredondo catheter has been placed. There is significant bladder wall thickening and inflammatory change in the subjacent fat, suggesting acute bacterial cystitis. Pelvic lymph nodes: No pelvic adenopathy by size criteria. Bones: No aggressive osseous abnormality. Other: No significant ventral or inguinal hernia. IMPRESSION: 1. Findings are consistent with development of acute right pyelonephritis, pyelitis, ureteritis, and cystitis. 2. Extensive diverticulosis without evidence of acute diverticulitis. Reviewed by: Sascha Chery MD on 10/02/2025 4:18 PM PST Approved by: Sascha Chery MD on 10/02/2025 4:18 PM PST Station ID: [id number]
[2025-10-02] MEDS ORDERED: ONDANSETRON 4 MG/2 ML VIAL IVP PRN (17:48)
[2025-10-02] MEDS ORDERED: ONDANSETRON ODT 4 MG TABLET TL PRN (17:48)
[2025-10-02] MEDS ORDERED: ACETAMINOPHEN 325 MG TABLET PO PRN (17:48)
[2025-10-02] MEDS: SODIUM CHLORIDE 0.9% 500 ML IV ONE (18:10)
--- NOTE | 2025-10-02 18:23 | HISTORY & PHYSICAL EXAMINATION ---
Chief Complaint Chief Complaint Chief Complaint: Back pain History of Present Illness Admitted From Admitted From:: Home History Obtained From History obtained from: Patient interview History of Present Illness HPI Comment/Other: 80-year-old male with history of CML, CAD, atrial fibrillation managed with carvedilol and warfarin presents with back pain. Reports that he has had intermittent loss of bowel and bladder control over the past week. Reports chills, and left-sided lower back pain that radiates to his groin. He reports numbness in his legs that has been going on for 25 years Denies subjective fever, chest pain, dyspnea, abdominal pain, N/V/D In the ED, CT abdomen/pelvis showed findings consistent with acute right pyelonephritis, pyelitis, ureteritis, cystitis. Arredondo catheter was placed which showed purulent urine. Creatinine 1.8, up from 1.2 in July. Vital signs stable, no elevation in WBC. He was noted to have hemoglobin of 7.4, however, so 1 unit PRBC was ordered by ED provider UA was also suggestive of UTI, so Rocephin was given by ED provider. Hospitalist was contacted for observation for acute pyelonephritis Meds/Allgy Home Medications Ambulatory Orders Medication Instructions Recorded Confirmed isosorbide mononitrate 120 mg 120 mg PO QAM #90 tabs 1 11/01/23 07/24/25 tablet,extended release 24 hr leflunomide 20 mg tablet 20 mg PO QDAY #90 tabs 09/0107/24/25 nitroglycerin 0.4 mg sublingual 0.4 mg sublingual Q5M PRN chest 09/01/24 07/24/25 tablet pain #25 tabs omeprazole 20 mg capsule,delayed 20 mg PO QDAY #90 cap s 09/01/24 07/24/25 release prednisone 2.5 mg tablet 2.5 mg PO QDAY #90 tabs 08/1607/24/25 sulfasalazine 500 mg tablet 1 g (2 x 500 mg) PO BID 3 months 09/01/24 07/24/25 #360 tabs carvedilol 3.125 mg tablet 3.125 mg PO BID #180 tabs 0 04/29/25 07/24/25 furosemide 20 mg tablet mg 07/24/25 atorvastatin 80 mg tablet (Lipitor) 80 mg PO QDAY #90 tabs 08/15/25 warfarin 2 mg tablet See Rx Instructions .Route 1 11/17/24 09/17/25 .COMPLEX #90 tabs Allergies Allergies Allergy/AdvReac Type Severity Reaction Status Date / Time amiodarone AdvReac Severe cardiac Verified 10/02/25 11:53 conduction issue PFSH Active Problems All Active Problems (Updated 10/02/25 @ 18:47 by Jin Palmer DNP) Anemia (Chronic) Acute kidney injury (Acute) Pyelonephritis (Acute) Hypotension (Acute) Skin breakdown (Acute) Chronic edema (Acute) Essential (primary) hypertension (Acute) Ischemic cardiomyopathy (Acute) CAD, multiple vessel (Acute) Permanent atrial fibrillation (Acute) Anticoagulated on warfarin (Acute) Mixed hyperlipidemia (Chronic) Prediabetes (Acute) Severe obesity with body mass index (BMI) of 36.0 to 36.9 with serious comorbidity (Acute) Anemia of chronic disease (Acute) Inflammatory polyarthritis (Acute) Bilateral primary osteoarthritis of knee (Acute) Medical History Medical History (Updated 10/02/25 @ 18:47 by Jin Palmer DNP) Shortness of breath 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 Hx of ventricular tachycardia 2001 s/p AICD + replaced 2009, associated with CAD 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, apical aneursym repaired Hx of skin cancer, basal cell Surgical History Surgical History (Updated 09/23/25 @ 00:00 by ) H/O coronary angiogram 01/2016, patent grafts Implantable cardioverter-defibrillator (ICD) generator end of life 2012, replaced, has bothersome left diaphramatic capture H/O coronary angiogram 08/2010, patent grafts Status post biventricular pacemaker 11/2009, + AICD H/O hemorrhoidectomy 10/2007 S/P cholecystectomy 06/2007 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, 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, associated with CAD S/P CABG x 2 01/2006, GASPAR-LAD, SVG-PDA AICD (automatic cardioverter/defibrillator) present 11/2001, single lead H/O reduction of nasal fracture Family History Family History Mother CAD (coronary artery disease) Brother CAD (coronary artery disease) Father Valvular heart disease Social History Social History (Updated 07/24/25 @ 15:18 by Ángela Gómez RN) Smoking Status: Never smoker Second hand tobacco smoke exposure: No Do you dip or chew tobacco?: No Do you vape?: No Living arrangement: At home Marital Status: Living Condition: Alone Support Person: Yes Relationship Notes: Daughter helps take care of me (he drives to her house 1x/ week). She helps him with his pills. 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 Service: No Are you following a diet prescribed by a doctor: No Are you following a special diet: No Review of Systems Status of ROS: 10 or more systems reviewed and unremarkable except as noted in history and below Exam Exam Vital Signs: Vital Signs x48h Temp Pulse Pulse Pulse Resp BP BP 10/02/25 18:22 97.3 F L 71 17 10/02/25 16:38 97.9 F 75 19 93/51 L 10/02/25 14:47 97.9 F 67 18 102/57 L 10/02/25 14:12 97.3 F L 18 112/52 L 10/02/25 14:00 18 143/84 H 10/02/25 13:56 97.5 F L 20 105/52 L 10/02/25 12:57 74 21 97/43 L 10/02/25 11:53 98.1 F 80 18 84/46 L BP Pulse Ox 10/02/25 18:22 110/57 L 98 10/02/25 16:38 96 10/02/25 14:47 98 10/02/25 14:12 97 10/02/25 14:00 99 10/02/25 13:56 94 10/02/25 12:57 95 10/02/25 11:53 96 Constitutional normal general appearance and no apparent distress HENMT normocephalic and head/scalp atraumatic Eyes PERRL Neck/C-Spine visual inspection normal Lymph no lymphadenopathy noted Chest inspection of chest normal Respiratory breath sounds equal bilaterally and normal respiratory effort Cardiovascular normal heart rate noted Gastrointestinal abdomen normal to inspection and abdomen soft to palpation Genitourinary CVA tenderness noted Neurology GCS 15 Psychiatry oriented x3 Skin Flaky skin Conclusion/Plan Problem List (1) Pyelonephritis: (2) Acute kidney injury: Plan: Plan is for both of the above problems: Pyelonephritis identified on CT scan UA concerning for infection No elevation in WBC, no concern for sepsis at this time Creatinine 1.8, up from 1.2 Rocephin 2 g IV push daily Received 1500 mL NS bolus Plasma-Lyte at 100 CBC, BMP in a.m. (3) Anemia: Plan: Macrocytic anemia with hemoglobin of 7.4. He was given 1 unit PRBC in the ED as it is expected for him to dilute some with his IV fluids Anemia panel ordered for a.m. (4) Permanent atrial fibrillation: Plan: Managed with carvedilol and warfarin PT/INR in a.m. Warfarin per pharmacy Holding carvedilol for now as he is rate controlled and has soft blood pressures (5) Essential (primary) hypertension: Plan: Patient is actually having soft blood pressures at this time. Most recent blood pressure after IV fluid bolus was 110/57 Consider restarting BP meds tomorrow, but hold for now Plan Place in observation Full code His daughter is a surrogate decision maker Lab Results Lab results reviewed: Yes 10/02/25 12:09 10/02/25 12:09
[2025-10-02] MEDS: ELECTROLYTE-A SOLUTION 1,000 ML IV SCH (19:09)
[2025-10-02] MEDS: ACETAMINOPHEN 500 MG TABLET PO SCH (19:10)
[2025-10-02] MEDS: oxyCODONE 5 MG TABLET PO PRN (19:56)
[2025-10-03] MEDS: ACETAMINOPHEN 500 MG TABLET PO SCH (03:23)
[2025-10-03] MEDS: SODIUM CHLORIDE FLUSH 0.9% 10 ML SYRINGE IVP SCH (03:24)
[2025-10-03 05:44] LABS: HCT - HEMATOCRIT 25.3 % (42.0-52.0); HGB - HEMOGLOBIN 8.0 g/dL (14.0-18.0); MEAN PLATELET VOLUME 9.7 fL (7.4-11.4); NRBC ABSOLUTE COUNT (AUTO) 0.00 x10^3/uL; NUCLEATED RED BLOOD CELLS AUTO 0.0 /100WBC; PLT - PLATELET COUNT 251 10^3/uL (130-450); RED CELL DISTRIBUTION WIDTH 15.9 % (12.0-15.0)
[2025-10-03 05:59] LABS: INR > 10.0 (0.8-1.2)
[2025-10-03 06:00] LABS: PT - PROTHROMBIN TIME > 120.0 secs (9.9-12.6)
[2025-10-03 06:04] LABS: % IRON SATURATION 16.0 % (20-50); BUN - BLOOD UREA NITROGEN 25.0 mg/dL (6-20); CARBON DIOXIDE - CO2 19.0 mmol/L (21-32); CREATININE 1.6 mg/dL (0.6-1.3); GFR - MDRD 42.0 (>89)
[2025-10-03 06:14] LABS: ABSOLUTE RETICS # AUTO 0.026 10^6/uL (0.020-0.110); RETICULOCYTE COUNT % (AUTO) 1.11 % (0.5-2.3)
[2025-10-03] MEDS: PHYTONADIONE INJ (ADULT) 10 MG in SODIUM CHLORIDE 0.9% 50 ML IV ONE (08:14)
[2025-10-03] MEDS: PHYTONADIONE 10 MG/ML AMP IVP STA (08:17)
[2025-10-03] MEDS ORDERED: ENOXAPARIN 40 MG/0.4 ML SYRINGE SUBQ SCH (09:00)
--- NOTE | 2025-10-03 11:24 | PROVIDER PROGRESS NOTE ---
Subjective Prog Note Date Prog Note Date: 10/03/25 Subjective Pt reports feeling: No change Current Medications Current Medications Current Medications: Current Medications Generic Name Dose Route Start Last Admin Trade Name Zelalem PRN Reason Stop Dose Admin Acetaminophen 1,000 mg 10/03/25 03:00 10/03/25 11:12 Acetaminophen 500 Mg Tablet PO 1,000 mg Q8H ANA Administration Ceftriaxone Sodium 2 gm 10/03/25 09:00 10/03/25 08:51 Ceftriaxone 2 Gm Vial IVP 2 gm DAILY ANA Administration Parenteral Electrolytes 1,000 mls @ 100 mls/hr 10/02/25 18:00 10/03/25 04:53 Plasma-Lyte A Ph 7.4 IV 100 mls/hr .Q10H ANA Administration Protocol Ondansetron HCl 4 mg 10/02/25 17:48 Ondansetron Odt 4 Mg Tablet TL Q6HR PRN Nausea / Vomiting Ondansetron HCl 4 mg 10/02/25 17:48 Ondansetron 4 Mg/2 Ml Vial IVP Q6HR PRN Nausea / Vomiting Oxycodone HCl 5 mg 10/02/25 18:39 10/02/25 19:56 Oxycodone 5 Mg Tablet PO 5 mg Q4HR PRN Administration Moderate Pain (Level 4-6) Sodium Chloride 10 ml 10/02/25 17:48 Sodium Chloride Flush 0.9% 10 Ml Syringe IVP PRN PRN NEEDED PER PROVIDER ORDERS Sodium Chloride 10 ml 10/03/25 01:00 10/03/25 08:14 Sodium Chloride Flush 0.9% 10 Ml Syringe IVP 10 ml 0100,0900,1700 ANA Administration Objective Vital Signs/Intake & Output Reviewed Vital Signs: Yes Vital Signs: Vital Signs x48h Temp Pulse Resp BP Pulse Ox 10/03/25 07:28 97.3 F L 60 18 115/60 98 10/03/25 03:54 97.9 F 61 16 110/54 L 97 Intake & Output: Intake & Output 09/30/25 10/01/25 10/02/25 10/03/25 23:59 23:59 23:59 23:59 Intake Total 2090 / 2090 1504 / 1504 Output Total 800 / 800 500 / 500 Balance 1290 / 1290 1004 / 1004 Weight (kg) 86.5 kg Objective General Appearance: positive No acute distress and Alert Eyes Bilateral: positive Normal inspection Neck: positive Nml inspection Respiratory: positive Chest non-tender Cardiovascular: positive Irregularly irregular Abdomen: positive Non-tender and Other (Arredondo with blood tinged urine) Skin: positive Color nml Extremities: positive Non-tender Neurologic/Psychiatric: positive Oriented x3 Lab Results 10/03/25 05:38 10/03/25 05:38 Other Labs: Lab Results x24hrs 10/03/25 10/03/25 10/03/25 Range/Units 05:38 05:38 05:38 WBC (4.8-10.8) x10^3/uL RBC 2.35 L (4.70-6.10) 10^6/uL Hgb 8.0 L (14.0-18.0) g/dL Hct 25.3 L (42.0-52.0) % MCV 104.5 H (80.0-94.0) fL MCH 33.1 H (27.0-31.0) pg MCHC 31.6 L (32.0-36.0) g/dL RDW 15.9 H (12.0-15.0) % Plt Count 251 (130-450) 10^3/uL MPV 9.7 (7.4-11.4) fL Reticulocyte % (Auto) 1.11 (0.5-2.3) % Neut # (Auto) 5.6 (1.5-6.6) 10^3/uL Lymph # (Auto) 1.1 L (1.5-3.5) 10^3/uL [place] # (Auto) 0.6 (0.0-1.0) 10^3/uL Eos # (Auto) 0.0 (0.0-0.7) 10^3/uL Baso # (Auto) 0.0 (0.0-0.1) 10^3/uL Absolute Nucleated RBC 0.00 x10^3/uL Nucleated RBC % 0.0 /100WBC Absolute Retic 0.026 (0.020-0.110) 10^6/uL PT > 120.0 H* (9.9-12.6) secs INR > 10.0 H* (0.8-1.2) Sodium 135 (135-145) mmol/L Potassium 3.5 (3.5-4.5) mmol/L Chloride 109 (101-111) mmol/L Carbon Dioxide 19 L (21-32) mmol/L Anion Gap 7.0 (6-13) BUN 25 H (6-20) mg/dL Creatinine 1.6 H (0.6-1.3) mg/dL Estimated GFR (MDRD) 42 L (>89) Glucose 114 H (74-104) mg/dL Lactic Acid (0.5-2.2) mmol/L Calcium 7.5 L (8.5-10.3) mg/dL Iron 25 L 23 L (50-212) ug/dL TIBC 141 L (250-450) ug/dL % Saturation 16 L (20-50) % Transferrin 100 L 101 L (203-362) mg/dL Ferritin 298.0 (23.9-336.2) ng/mL Total Bilirubin (0.2-1.0) mg/dL AST (10-42) IU/L ALT (10-60) IU/L Alkaline Phosphatase (42-121) IU/L Lactate Dehydrogenase 121 L (140-271) IU/L Total Protein (6.4-8.9) g/dL Albumin (3.2-5.5) g/dL Globulin (2.1-4.2) g/dL Albumin/Globulin Ratio (1.0-2.2) Lipase (11-82) U/L Vitamin B12 963 H (180-914) pg/mL Urine Color Urine Clarity (CLEAR) Urine pH (5.0-7.5) PH Ur Specific [place] (1.002-1.030) Urine Protein (NEGATIVE) mg/dL Urine Glucose (UA) (NEGATIVE) mg/dL Urine Ketones (NEGATIVE) mg/dL Urine Occult Blood (NEGATIVE) Urine Nitrite (NEGATIVE) Urine Bilirubin (NEGATIVE) Urine Urobilinogen (NORMAL) E.U./dL Ur Leukocyte Esterase (NEGATIVE) Urine RBC (0-5) /HPF Urine WBC (0-3) /HPF Ur Squamous Epith Cells (<= Few) Urine Bacteria (None Seen) /HPF Urine Mucus Ur Microscopic Review Urine Culture Comments Blood Type Antibody Screen Crossmatch IS Only 10/03/25 10/02/25 10/02/25 Range/Units 05:38 14:11 12:37 WBC 7.3 (4.8-10.8) x10^3/uL RBC 2.42 L (4.70-6.10) 10^6/uL Hgb (14.0-18.0) g/dL Hct (42.0-52.0) % MCV (80.0-94.0) fL MCH (27.0-31.0) pg MCHC (32.0-36.0) g/dL RDW (12.0-15.0) % Plt Count (130-450) 10^3/uL MPV (7.4-11.4) fL Reticulocyte % (Auto) (0.5-2.3) % Neut # (Auto) (1.5-6.6) 10^3/uL Lymph # (Auto) (1.5-3.5) 10^3/uL [place] # (Auto) (0.0-1.0) 10^3/uL Eos # (Auto) (0.0-0.7) 10^3/uL Baso # (Auto) (0.0-0.1) 10^3/uL Absolute Nucleated RBC x10^3/uL Nucleated RBC % /100WBC Absolute Retic (0.020-0.110) 10^6/uL PT (9.9-12.6) secs INR (0.8-1.2) Sodium (135-145) mmol/L Potassium (3.5-4.5) mmol/L Chloride (101-111) mmol/L Carbon Dioxide (21-32) mmol/L Anion Gap (6-13) BUN (6-20) mg/dL Creatinine (0.6-1.3) mg/dL Estimated GFR (MDRD) (>89) Glucose (74-104) mg/dL Lactic Acid (0.5-2.2) mmol/L Calcium (8.5-10.3) mg/dL Iron (50-212) ug/dL TIBC (250-450) ug/dL % Saturation (20-50) % Transferrin (203-362) mg/dL Ferritin (23.9-336.2) ng/mL Total Bilirubin (0.2-1.0) mg/dL AST (10-42) IU/L ALT (10-60) IU/L Alkaline Phosphatase (42-121) IU/L Lactate Dehydrogenase (140-271) IU/L Total Protein (6.4-8.9) g/dL Albumin (3.2-5.5) g/dL Globulin (2.1-4.2) g/dL Albumin/Globulin Ratio (1.0-2.2) Lipase (11-82) U/L Vitamin B12 (180-914) pg/mL Urine Color Yellow Urine Clarity TURBID (CLEAR) Urine pH 5.5 (5.0-7.5) PH Ur Specific [place] 1.010 (1.002-1.030) Urine Protein 100 H (NEGATIVE) mg/dL Urine Glucose (UA) Negative (NEGATIVE) mg/dL Urine Ketones Negative (NEGATIVE) mg/dL Urine Occult Blood Moderate (NEGATIVE) Urine Nitrite Negative (NEGATIVE) Urine Bilirubin Negative (NEGATIVE) Urine Urobilinogen 0.2 (NORMAL) (NORMAL) E.U./dL Ur Leukocyte Esterase Large (NEGATIVE) Urine RBC 11-25 H (0-5) /HPF Urine WBC >25 H (0-3) /HPF Ur Squamous Epith Cells NONE SEEN (<= Few) Urine Bacteria Moderate H (None Seen) /HPF Urine Mucus Moderate Strands Ur Microscopic Review INDICATED Urine Culture Comments INDICATED Blood Type A POSITIVE Antibody Screen NEGATIVE Crossmatch IS Only See Detail 10/02/25 Range/Units 12:09 WBC 7.4 (4.8-10.8) x10^3/uL RBC 2.15 L (4.70-6.10) 10^6/uL Hgb 7.4 L (14.0-18.0) g/dL Hct 23.5 L (42.0-52.0) % MCV 109.3 H (80.0-94.0) fL MCH 34.4 H (27.0-31.0) pg MCHC 31.5 L (32.0-36.0) g/dL RDW 13.4 (12.0-15.0) % Plt Count 277 (130-450) 10^3/uL MPV 10.1 (7.4-11.4) fL Reticulocyte % (Auto) (0.5-2.3) % Neut # (Auto) 6.3 (1.5-6.6) 10^3/uL Lymph # (Auto) 0.5 L (1.5-3.5) 10^3/uL [place] # (Auto) 0.6 (0.0-1.0) 10^3/uL Eos # (Auto) 0.0 (0.0-0.7) 10^3/uL Baso # (Auto) 0.0 (0.0-0.1) 10^3/uL Absolute Nucleated RBC 0.00 x10^3/uL Nucleated RBC % 0.0 /100WBC Absolute Retic (0.020-0.110) 10^6/uL PT (9.9-12.6) secs INR (0.8-1.2) Sodium 136 (135-145) mmol/L Potassium 3.6 (3.5-4.5) mmol/L Chloride 111 (101-111) mmol/L Carbon Dioxide 17 L (21-32) mmol/L Anion Gap 8.0 (6-13) BUN 27 H (6-20) mg/dL Creatinine 1.8 H (0.6-1.3) mg/dL Estimated GFR (MDRD) 37 L (>89) Glucose 124 H (74-104) mg/dL Lactic Acid 1.6 (0.5-2.2) mmol/L Calcium 7.7 L (8.5-10.3) mg/dL Iron (50-212) ug/dL TIBC (250-450) ug/dL % Saturation (20-50) % Transferrin (203-362) mg/dL Ferritin (23.9-336.2) ng/mL Total Bilirubin 0.6 (0.2-1.0) mg/dL AST 22 (10-42) IU/L ALT 40 (10-60) IU/L Alkaline Phosphatase 178 H (42-121) IU/L Lactate Dehydrogenase (140-271) IU/L Total Protein 4.9 L (6.4-8.9) g/dL Albumin 2.7 L (3.2-5.5) g/dL Globulin 2.2 (2.1-4.2) g/dL Albumin/Globulin Ratio 1.2 (1.0-2.2) Lipase 32 (11-82) U/L Vitamin B12 (180-914) pg/mL Urine Color Urine Clarity (CLEAR) Urine pH (5.0-7.5) PH Ur Specific [place] (1.002-1.030) Urine Protein (NEGATIVE) mg/dL Urine Glucose (UA) (NEGATIVE) mg/dL Urine Ketones (NEGATIVE) mg/dL Urine Occult Blood (NEGATIVE) Urine Nitrite (NEGATIVE) Urine Bilirubin (NEGATIVE) Urine Urobilinogen (NORMAL) E.U./dL Ur Leukocyte Esterase (NEGATIVE) Urine RBC (0-5) /HPF Urine WBC (0-3) /HPF Ur Squamous Epith Cells (<= Few) Urine Bacteria (None Seen) /HPF Urine Mucus Ur Microscopic Review Urine Culture Comments Blood Type Antibody Screen Crossmatch IS Only Assessment/Plan Problem List (1) Supratherapeutic INR: Impression: INR greater than 10 on morning labs Holding warfarin, vitamin K administered Recheck INR this afternoon (2) Pyelonephritis: (3) Acute kidney injury: Impression: Plan is for both of the above problems: Pyelonephritis identified on CT scan UA concerning for infection No elevation in WBC, no concern for sepsis at this time Creatinine 1.8 on presentation, up from 1.2 Rocephin 2 g IV push daily Received 1500 mL NS bolus Plasma-Lyte at 100 CBC, BMP in a.m. 10/03: Creatinine has improved to 1.6. Continuing IV fluids and Rocephin (4) Anemia: Impression: He has received 1 unit of PRBC so far. Ferritin and B12 levels are not low. He is having some hematuria, likely secondary to his grossly elevated INR. Continue to trend hemoglobin (5) Permanent atrial fibrillation: Impression: Managed with carvedilol and warfarin Holding warfarin due to supratherapeutic INR Restart carvedilol after pharmacy review (6) Essential (primary) hypertension: Impression: BP 115/60. Restarting carvedilol for rate control
--- NOTE | 2025-10-03 11:42 | PHARMACY PROGRESS NOTE ---
Best Possible Medication History Admit Date and Time: 10/02/25 1719 Home Medications Medication Instructions Recorded Confirmed Type nitroglycerin 0.4 mg sublingual 0.4 mg sublingual Q5M PRN chest 09/01/24 10/03/25 Rx tablet pain #25 tabs sulfasalazine 500 mg tablet 1 g (2 x 500 mg) PO BID 3 months 09/01/24 10/03/25 Rx #360 tabs carvedilol 3.125 mg tablet 3.125 mg PO BID #180 tabs 0 04/29/25 10/03/25 Rx warfarin 2 mg tablet See Rx Instructions .Route 1 11/17/24 10/03/25 Rx .COMPLEX #90 tabs atorvastatin 80 mg tablet (Lipitor) 80 mg PO DAILY 10/03/25 History isosorbide mononitrate 120 mg 120 mg PO DAILY 10/03/25 10/03/25 History tablet,extended release 24 hr leflunomide 20 mg tablet 20 mg PO DAILY 10/03/2509/15 History lisinopril 10 mg tablet 10 mg PO DAILY 10/03/2509/15 History omeprazole 20 mg capsule,delayed 20 mg PO HS 10/03/25 10/03/25 History release prednisone 2.5 mg tablet 2.5 mg PO DAILY 10/03/25 History spironolactone 25 mg tablet 25 mg PO DAILY 10/03/25 History Processed by: Pharmacy Medications reviewed in ED?: Yes Medication History completed: Yes Patient Interview: Completed Secondary Source(s): Other family member and Insurance records [facility] Statement: As the person ultimately responsible for medication therapy, providers are able to order a medication from an existing home medication list in [facility] via the "Reconcile Routine" prior to Confirmation of that medication by database support. Such practice is discouraged except when the physician, in their clinical judgment, deems that a medical need exists for a medication without regard to previous use.
[2025-10-03 14:24] LABS: INR 3.0 (0.8-1.2); PT - PROTHROMBIN TIME 33.2 secs (9.9-12.6)
--- NOTE | 2025-10-03 16:34 | PT Plan of Care ---
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, apical aneursym repaired Hx of skin cancer, basal cell Surgical History (Updated 09/23/25 @ 00:00 by ) H/O coronary angiogram 01/2016, patent grafts Implantable cardioverter-defibrillator (ICD) generator end of life 2012, replaced, has bothersome left diaphramatic capture H/O coronary angiogram 08/2010, patent grafts Status post biventricular pacemaker 11/2009, + AICD H/O hemorrhoidectomy 10/2007 S/P cholecystectomy 06/2007 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 Admitted with acute pyelonephritis, pyelitis, ureteritis, cystitis. Complex medical history including ventricular tachycardia with AICD in 2001, ventricular aneurysm in 2005, CABG x2. Cleared for eval by hospitalist. Upon PT eval, pt reports significant pain and presents with increased pallor. Active motion WFL and strength 3+/5 in all 4 limbs. Deferred out of bed mobility assessment d/t severe pain and anxiety. Extensive discussion with pt and pts dtr Sandra who is present throughout eval regarding dc recs and home safety. Pt is reluctant to dc to SNF but dtr feels this would be beneficial. Pt is aware he needs increased help at this time and agrees to work on transfers out of bed tomorrow with nsg assist. Pt will benefit from continued skilled PT to progress mobility and functional indep. When medically clear, PT rec dc to SNF as pt is far below baseline and unsafe to live indep at this time. Goals Improve bed mobility to: Contact Guard Improve supine to sit to: Minimal Assist Improve sit to stand to: Minimal Assist Improve pivot transfer ability Minimal Assist to: Improve sit to supine to: Contact Guard Improve gait ability to: Min A Assistive Device Used: Front Wheeled Walker Improve Sitting Balance to: Good Improve Standing Balance to: Fair PT Plan of Care Duration daily as coverage allows Discharge Recommendations Discharge Location Long-Term Facility DC Equipment Recommended Front wheeled walker Transport Needs at Discharge B.L.S Other BLS d/t pain and unable to transfer OOB, may progress to wc van/POV
[2025-10-04 05:11] LABS: HCT - HEMATOCRIT 25.7 % (42.0-52.0); HGB - HEMOGLOBIN 8.5 g/dL (14.0-18.0); MEAN PLATELET VOLUME 9.9 fL (7.4-11.4); NRBC ABSOLUTE COUNT (AUTO) 0.00 x10^3/uL; NUCLEATED RED BLOOD CELLS AUTO 0.0 /100WBC; PLT - PLATELET COUNT 311 10^3/uL (130-450); RED CELL DISTRIBUTION WIDTH 15.5 % (12.0-15.0)
[2025-10-04 05:31] LABS: BUN - BLOOD UREA NITROGEN 16.0 mg/dL (6-20); CARBON DIOXIDE - CO2 20.0 mmol/L (21-32); CREATININE 1.3 mg/dL (0.6-1.3); GFR - MDRD 53.0 (>89)
[2025-10-04 07:47] LABS: INR 1.7 (0.8-1.2); PT - PROTHROMBIN TIME 18.8 secs (9.9-12.6)
[2025-10-04] MEDS: PRENATAL VITAMIN TABLET PO SCH (08:26)
--- NOTE | 2025-10-04 12:57 | ADVANCE CARE PLANNING NOTE ---
Advance Care Planning Planning Encounter Date: 10/04/25 Time: 12:48 Purpose: Discussed long-term plan of care, logistical concerns after SNF Parties in Attendance: Patient Decisional Capacity of the Patient: Full Diagnosis for Encounter (1) Unintentional weight loss: Summary: Patient has lost a significant amount of weight without trying. He was 214 pounds in April, And he is 190 pounds here. He reports poor appetite, not feeling like eating. He had a presentation at this hospital to our emergency department in July, where it was suggested that he may have gastric outlet obstruction. He has been working on getting back in his primary care provider's office so that he can get referral to GI. He tells me that he now has this referral, and he will be seeing them on October 21. Encounter Subjective/Patient's Story: Patient reports that he is not doing very much with his life right now, that for fun he sees his daughter, and he does not do much else. He lives by himself, with daughter nearby. When asked about long-term planning, he said he is 80 years old and is not sure what long-term means Objective/Medical Story: He appears to be depressed to me, and has had 25 pounds weight loss since April due to poor appetite and possible gastric outlet obstruction. He is in the process of establishing DPOA with his daughter Goals of Care: I mention to the patient that he should consider the logistics of his continued aging. He currently lives by himself, and is not considered what will happen when he is no longer able to do so other than "I guess I will just ". 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 I am starting him on mirtazapine for appetite stimulation. He has follow-up with GI in October. I will follow-up with POLST form, When daughter is present Time spent on advance care plannin
[2025-10-04] MEDS: WARFARIN 1 MG TABLET PO SCH (14:06)
--- NOTE | 2025-10-04 15:20 | PROVIDER PROGRESS NOTE ---
Subjective Prog Note Date Prog Note Date: 10/04/25 Subjective Pt reports feeling: Improved Current Medications Current Medications Current Medications: Current Medications Generic Name Dose Route Start Last Admin Trade Name Freq PRN Reason Stop Dose Admin Acetaminophen 650 mg 10/04/25 12:22 Acetaminophen 325 Mg Tablet PO Q4HR PRN Pain or Fever > 38C (100.4F) Ceftriaxone Sodium 2 gm 10/03/25 09:00 10/04/25 08:26 Ceftriaxone 2 Gm Vial IVP 2 gm DAILY ANA Administration Mirtazapine 15 mg 10/04/25 21:00 Mirtazapine 15 Mg Tablet PO QPM ANA Ondansetron HCl 4 mg 10/02/25 17:48 Ondansetron Odt 4 Mg Tablet TL Q6HR PRN Nausea / Vomiting Ondansetron HCl 4 mg 10/02/25 17:48 Ondansetron 4 Mg/2 Ml Vial IVP Q6HR PRN Nausea / Vomiting Oxycodone HCl 5 mg 10/02/25 18:39 10/03/25 15:58 Oxycodone 5 Mg Tablet PO 5 mg Q4HR PRN Administration Moderate Pain (Level 4-6) Multivit/Folic Acid/Iron 1 tab 10/04/25 08:00 10/04/25 08:26 Vitamin Tablet PO 1 tab DAILYWM ANA Administration Sodium Chloride 10 ml 10/02/25 17:48 Sodium Chloride Flush 0.9% 10 Ml Syringe IVP PRN PRN NEEDED PER PROVIDER ORDERS Sodium Chloride 10 ml 10/03/25 01:00 10/04/25 08:26 Sodium Chloride Flush 0.9% 10 Ml Syringe IVP 10 ml 0100,0900,1700 ANA Administration Warfarin Sodium 2 mg 10/04/25 14:00 10/04/25 14:06 Warfarin 1 Mg Tablet PO 2 mg QDWARFARIN ANA Administration Objective Vital Signs/Intake & Output Reviewed Vital Signs: Yes Vital Signs: Vital Signs x48h Temp Pulse Resp BP Pulse Ox 10/04/25 11:46 97.9 F 112 H 20 149/78 H 97 10/04/25 08:51 97.7 F 97 18 137/68 H 95 Intake & Output: Intake & Output 10/01/25 10/02/25 10/03/25 10/04/25 23:59 23:59 23:59 23:59 Intake Total 2089 2572 / 2572 2588 / 2588 Output Total 800 / 800 1750 / 1750 Balance 1290 / 1290 822 / 822 2588 / 2588 Weight (kg) 86.5 kg Objective General Appearance: positive No acute distress and Alert Eyes Bilateral: positive Normal inspection Neck: positive Nml inspection Respiratory: positive Chest non-tender Cardiovascular: positive Irregularly irregular Abdomen: positive Non-tender Skin: positive Color nml Extremities: positive Non-tender Neurologic/Psychiatric: positive Oriented x3 Lab Results 10/04/25 04:08 10/04/25 04:08 Other Labs: Lab Results x24hrs 10/04/25 10/04/25 Range/Units 07:36 04:08 WBC 8.5 (4.8-10.8) x10^3/uL RBC 2.51 L (4.70-6.10) 10^6/uL Hgb 8.5 L (14.0-18.0) g/dL Hct 25.7 L (42.0-52.0) % MCV 102.4 H (80.0-94.0) fL MCH 33.9 H (27.0-31.0) pg MCHC 33.1 (32.0-36.0) g/dL RDW 15.5 H (12.0-15.0) % Plt Count 311 (130-450) 10^3/uL MPV 9.9 (7.4-11.4) fL Neut # (Auto) 6.6 (1.5-6.6) 10^3/uL Lymph # (Auto) 1.2 L (1.5-3.5) 10^3/uL Sac # (Auto) 0.6 (0.0-1.0) 10^3/uL Eos # (Auto) 0.0 (0.0-0.7) 10^3/uL Baso # (Auto) 0.0 (0.0-0.1) 10^3/uL Absolute Nucleated RBC 0.00 x10^3/uL Nucleated RBC % 0.0 /100WBC PT 18.8 H (9.9-12.6) secs INR 1.7 H (0.8-1.2) Sodium 136 (135-145) mmol/L Potassium 3.6 (3.5-4.5) mmol/L Chloride 109 (101-111) mmol/L Carbon Dioxide 20 L (21-32) mmol/L Anion Gap 7.0 (6-13) BUN 16 (6-20) mg/dL Creatinine 1.3 (0.6-1.3) mg/dL Estimated GFR (MDRD) 53 L (>89) Glucose 89 (74-104) mg/dL Calcium 7.6 L (8.5-10.3) mg/dL Folate 10.8 (5.90 - >24.8) ng/mL Assessment/Plan Problem List (1) Pyelonephritis: (2) Acute kidney injury: Impression: Plan is for both of the above problems: Pyelonephritis identified on CT scan UA concerning for infection No elevation in WBC, no concern for sepsis at this time Creatinine 1.8 on presentation, up from 1.2 Rocephin 2 g IV push daily Received 1500 mL NS bolus Plasma-Lyte at 100 CBC, BMP in a.m. 10/03: Creatinine has improved to 1.6. Continuing IV fluids and Rocephin 10/04: Creatinine has improved to 1.3. Arredondo was removed yesterday and he has continued to have clear urine output. Flank pain is subsiding. At this point he is medically clear for discharge. I have discontinued his IV fluids. I am also de-escalating his antibiotics to Keflex 1 g 3 times daily starting tomorrow (3) Unintentional weight loss: Impression: He has had some significant weight loss since April. He reports no appetite. He had incidental concern for gastric outlet obstruction on previous ER visit, he is being referred to GI for workup of that. Of starting him on mirtazapine 15 mg p.o. every afternoon (4) Supratherapeutic INR: Impression: INR greater than 10 on morning labs Holding warfarin, vitamin K administered Recheck INR this afternoon 10/04: His repeat INR was 1.7. I have consulted pharmacy to restart his warfarin (5) Anemia: Impression: He has received 1 unit of PRBC so far. Ferritin and B12 levels are not low. He is having some hematuria, likely secondary to his grossly elevated INR. Continue to trend hemoglobin 10/04: His hemoglobin has trended up, now its at 8.5 (6) Permanent atrial fibrillation: Impression: Managed with carvedilol and warfarin at home, restarting carvedilol, warfarin per pharmacy (7) Essential (primary) hypertension: Impression: His blood pressure has improved to 149/78. I am restarting his home dose lisinopril, spironolactone, isosorbide
[2025-10-04] MEDS: MIRTAZAPINE 15 MG TABLET PO SCH (20:06)
[2025-10-04] MEDS: PANTOPRAZOLE 40 MG TABLET PO SCH (20:06)
[2025-10-05 05:12] LABS: HCT - HEMATOCRIT 29.3 % (42.0-52.0); HGB - HEMOGLOBIN 9.6 g/dL (14.0-18.0); MEAN PLATELET VOLUME 9.8 fL (7.4-11.4); NRBC ABSOLUTE COUNT (AUTO) 0.00 x10^3/uL; NUCLEATED RED BLOOD CELLS AUTO 0.0 /100WBC; PLT - PLATELET COUNT 383 10^3/uL (130-450); RED CELL DISTRIBUTION WIDTH 15.2 % (12.0-15.0)
[2025-10-05 05:25] LABS: BUN - BLOOD UREA NITROGEN 17.0 mg/dL (6-20); CARBON DIOXIDE - CO2 21.0 mmol/L (21-32); CREATININE 1.7 mg/dL (0.6-1.3); GFR - MDRD 39.0 (>89)
[2025-10-05 07:59] LABS: INR 2.4 (0.8-1.2); PT - PROTHROMBIN TIME 26.3 secs (9.9-12.6)
[2025-10-05] MEDS: ATORVASTATIN 40 MG TABLET PO SCH (08:39)
[2025-10-05] MEDS: SPIRONOLACTONE 25 MG TABLET PO SCH (08:40)
[2025-10-05] MEDS: ISOSORBIDE MONONITRATE ER 30 MG TABLET PO SCH (08:41)
[2025-10-05] MEDS: SODIUM CHLORIDE FLUSH 0.9% 10 ML SYRINGE IVP PRN (11:19)
--- NOTE | 2025-10-05 11:22 | PROVIDER PROGRESS NOTE ---
Subjective Prog Note Date Prog Note Date: 10/05/25 Subjective Pt reports feeling: No change Current Medications Current Medications Current Medications: Current Medications Generic Name Dose Route Start Last Admin Trade Name Zelalem PRN Reason Stop Dose Admin Acetaminophen 650 mg 10/04/25 12:22 Acetaminophen 325 Mg Tablet PO Q4HR PRN Pain or Fever > 38C (100.4F) Atorvastatin Calcium 80 mg 10/05/25 09:00 10/05/25 08:39 Atorvastatin 40 Mg Tablet PO 80 mg DAILY ANA Administration Carvedilol 3.125 mg 10/04/25 21:00 10/05/25 08:41 Carvedilol 3.125 Mg Tablet PO 3.125 mg BID ANA Administration Cephalexin 1,000 mg 10/05/25 06:00 10/05/25 05:53 Cephalexin 500 Mg Capsule PO 1,000 mg TID ANA Administration Isosorbide Mononitrate 120 mg 10/05/25 09:00 10/05/25 08:41 Isosorbide Mononitrate Er 30 Mg Tablet PO 120 mg DAILY ANA Administration Lisinopril 10 mg 10/05/25 09:00 10/05/25 08:40 Lisinopril 5 Mg Tablet PO 10 mg DAILY ANA Administration Mirtazapine 15 mg 10/04/25 21:00 10/04/25 20:06 Mirtazapine 15 Mg Tablet PO 15 mg QPM ANA Administration Ondansetron HCl 4 mg 10/02/25 17:48 Ondansetron Odt 4 Mg Tablet TL Q6HR PRN Nausea / Vomiting Ondansetron HCl 4 mg 10/02/25 17:48 Ondansetron 4 Mg/2 Ml Vial IVP Q6HR PRN Nausea / Vomiting Oxycodone HCl 5 mg 10/02/25 18:39 10/04/25 23:55 Oxycodone 5 Mg Tablet PO 5 mg Q4HR PRN Administration Moderate Pain (Level 4-6) Pantoprazole Sodium 40 mg 10/04/25 21:00 10/04/25 20:06 Pantoprazole 40 Mg Tablet PO 40 mg HS ANA Administration Leflunomide 20 Mg 1 each 10/05/25 09:00 10/05/25 08:39 Tablet PO 1 each DAILY ANA Administration Prednisone 2.5 mg 10/05/25 09:00 10/05/25 08:40 Prednisone 5 Mg Tablet PO 2.5 mg DAILY ANA Administration Multivit/Folic Acid/Iron 1 tab 10/04/25 08:00 10/05/25 08:39 Vitamin Tablet PO 1 tab DAILYWM ANA Administration Sodium Chloride 10 ml 10/02/25 17:48 Sodium Chloride Flush 0.9% 10 Ml Syringe IVP PRN PRN NEEDED PER PROVIDER ORDERS Sodium Chloride 10 ml 10/03/25 01:00 10/05/25 08:40 Sodium Chloride Flush 0.9% 10 Ml Syringe IVP 10 ml 0100,0900,1700 ANA Administration Spironolactone 25 mg 10/05/25 09:00 10/05/25 08:40 Spironolactone 25 Mg Tablet PO 25 mg DAILY ANA Administration Sulfasalazine 1,000 mg 10/04/25 21:00 10/05/25 08:39 Sulfasalazine 500 Mg Tablet PO 1,000 mg BID ANA Administration Warfarin Sodium 2 mg 10/06/25 14:00 Warfarin 1 Mg Tablet PO QDWARFARIN [facility] Objective Vital Signs/Intake & Output Reviewed Vital Signs: Yes Vital Signs: Vital Signs x48h Temp Pulse Resp BP Pulse Ox 10/05/25 08:50 97.7 F 80 18 115/64 97 Intake & Output: Intake & Output 10/02/25 10/03/25 10/04/25 10/05/25 23:59 23:59 23:59 23:59 Intake Total 2090 / 2090 2572 / 2572 2788 / 2788 1574 / 1574 Output Total 800 / 800 1750 / 1750 Balance 1290 / 1290 822 / 822 2788 / 2788 1574 / 1574 Weight (kg) 86.5 kg Objective General Appearance: positive No acute distress and Alert Eyes Bilateral: positive Normal inspection Neck: positive Nml inspection Respiratory: positive Chest non-tender Cardiovascular: positive Irregularly irregular Abdomen: positive Non-tender Skin: positive Color nml Extremities: positive Non-tender Neurologic/Psychiatric: positive Oriented x3 Lab Results 10/05/25 04:04 10/05/25 04:04 Other Labs: Lab Results x24hrs 10/05/25 10/05/25 Range/Units 07:42 04:04 WBC 9.7 (4.8-10.8) x10^3/uL RBC 2.88 L (4.70-6.10) 10^6/uL Hgb 9.6 L (14.0-18.0) g/dL Hct 29.3 L (42.0-52.0) % MCV 101.7 H (80.0-94.0) fL MCH 33.3 H (27.0-31.0) pg MCHC 32.8 (32.0-36.0) g/dL RDW 15.2 H (12.0-15.0) % Plt Count 383 (130-450) 10^3/uL MPV 9.8 (7.4-11.4) fL Neut # (Auto) 7.3 H (1.5-6.6) 10^3/uL Lymph # (Auto) 1.5 (1.5-3.5) 10^3/uL [place] # (Auto) 0.8 (0.0-1.0) 10^3/uL Eos # (Auto) 0.0 (0.0-0.7) 10^3/uL Baso # (Auto) 0.1 (0.0-0.1) 10^3/uL Absolute Nucleated RBC 0.00 x10^3/uL Nucleated RBC % 0.0 /100WBC PT 26.3 H (9.9-12.6) secs INR 2.4 H (0.8-1.2) Sodium 138 (135-145) mmol/L Potassium 4.3 (3.5-4.5) mmol/L Chloride 110 (101-111) mmol/L Carbon Dioxide 21 (21-32) mmol/L Anion Gap 7.0 (6-13) BUN 17 (6-20) mg/dL Creatinine 1.7 H (0.6-1.3) mg/dL Estimated GFR (MDRD) 39 L (>89) Glucose 100 (74-104) mg/dL Calcium 8.3 L (8.5-10.3) mg/dL Assessment/Plan Problem List (1) Pyelonephritis: (2) Acute kidney injury: Impression: Plan is for both of the above problems: Pyelonephritis identified on CT scan UA concerning for infection No elevation in WBC, no concern for sepsis at this time Creatinine 1.8 on presentation, up from 1.2 Rocephin 2 g IV push daily Received 1500 mL NS bolus Plasma-Lyte at 100 CBC, BMP in a.m. 10/03: Creatinine has improved to 1.6. Continuing IV fluids and Rocephin 10/04: Creatinine has improved to 1.3. Arredondo was removed yesterday and he has continued to have clear urine output. Flank pain is subsiding. At this point he is medically clear for discharge. I have discontinued his IV fluids. I am also de-escalating his antibiotics to Keflex 1 g 3 times daily starting tomorrow 10/05: Creatinine was 1.7 this morning. I have ordered bladder scan and LR bolus, holding lisinopril for now (3) Unintentional weight loss: Impression: He has had some significant weight loss since April. He reports no appetite. He had incidental concern for gastric outlet obstruction on previous ER visit, he is being referred to GI for workup of that. Of starting him on mirtazapine 15 mg p.o. every afternoon (4) Supratherapeutic INR: Impression: INR greater than 10 on morning labs Holding warfarin, vitamin K administered Recheck INR this afternoon 10/04: His repeat INR was 1.7. I have consulted pharmacy to restart his warfarin (5) Anemia: Impression: He has received 1 unit of PRBC so far. Ferritin and B12 levels are not low. He is having some hematuria, likely secondary to his grossly elevated INR. Continue to trend hemoglobin 10/04: His hemoglobin has trended up, now its at 8.5 (6) Permanent atrial fibrillation: Impression: Managed with carvedilol and warfarin at home, restarting carvedilol, warfarin per pharmacy (7) Essential (primary) hypertension: Impression: His blood pressure has improved to 149/78. I am restarting his home dose lisinopril, spironolactone, isosorbide
[2025-10-05] MEDS: LACTATED RINGERS 1,000 ML IV ONE (11:50)
[2025-10-05] MEDS: TAMSULOSIN 0.4 MG CAPSULE PO SCH (12:51)
[2025-10-05] MEDS: ACETAMINOPHEN 325 MG TABLET PO PRN (16:06)
[2025-10-06 04:43] LABS: HCT - HEMATOCRIT 26.0 % (42.0-52.0); HGB - HEMOGLOBIN 8.3 g/dL (14.0-18.0); MEAN PLATELET VOLUME 9.4 fL (7.4-11.4); NRBC ABSOLUTE COUNT (AUTO) 0.00 x10^3/uL; NUCLEATED RED BLOOD CELLS AUTO 0.0 /100WBC; PLT - PLATELET COUNT 308 10^3/uL (130-450); RED CELL DISTRIBUTION WIDTH 15.4 % (12.0-15.0)
[2025-10-06 04:54] LABS: BUN - BLOOD UREA NITROGEN 20.0 mg/dL (6-20); CARBON DIOXIDE - CO2 25.0 mmol/L (21-32); CREATININE 1.7 mg/dL (0.6-1.3); GFR - MDRD 39.0 (>89)
--- NOTE | 2025-10-06 12:40 | PROVIDER PROGRESS NOTE ---
Subjective Prog Note Date Prog Note Date: 10/06/25 Subjective Pt reports feeling: No change Current Medications Current Medications Current Medications: Current Medications Generic Name Dose Route Start Last Admin Trade Name Zelalem PRN Reason Stop Dose Admin Acetaminophen 650 mg 10/04/25 12:22 10/06/25 08:55 Acetaminophen 325 Mg Tablet PO 650 mg Q4HR PRN Administration Pain or Fever > 38C (100.4F) Atorvastatin Calcium 80 mg 10/05/25 09:00 10/06/25 08:49 Atorvastatin 40 Mg Tablet PO 80 mg DAILY ANA Administration Carvedilol 3.125 mg 10/04/25 21:00 10/06/25 08:49 Carvedilol 3.125 Mg Tablet PO 3.125 mg BID ANA Administration Cephalexin 1,000 mg 10/05/25 06:00 10/06/25 06:00 Cephalexin 500 Mg Capsule PO 1,000 mg TID ANA Administration Isosorbide Mononitrate 120 mg 10/05/25 09:00 10/06/25 08:49 Isosorbide Mononitrate Er 30 Mg Tablet PO 120 mg DAILY ANA Administration Mirtazapine 15 mg 10/04/25 21:00 10/05/25 21:24 Mirtazapine 15 Mg Tablet PO 15 mg QPM ANA Administration Ondansetron HCl 4 mg 10/02/25 17:48 Ondansetron Odt 4 Mg Tablet TL Q6HR PRN Nausea / Vomiting Ondansetron HCl 4 mg 10/02/25 17:48 Ondansetron 4 Mg/2 Ml Vial IVP Q6HR PRN Nausea / Vomiting Oxycodone HCl 5 mg 10/02/25 18:39 10/05/25 23:40 Oxycodone 5 Mg Tablet PO 5 mg Q4HR PRN Administration Moderate Pain (Level 4-6) Pantoprazole Sodium 40 mg 10/04/25 21:00 10/05/25 21:24 Pantoprazole 40 Mg Tablet PO 40 mg HS ANA Administration Leflunomide 20 Mg 1 each 10/05/25 09:00 10/06/25 08:49 Tablet PO 1 each DAILY ANA Administration Prednisone 2.5 mg 10/05/25 09:00 10/06/25 08:49 Prednisone 5 Mg Tablet PO 2.5 mg DAILY ANA Administration Multivit/Folic Acid/Iron 1 tab 10/04/25 08:00 10/06/25 08:49 Vitamin Tablet PO 1 tab DAILYWM ANA Administration Sodium Chloride 10 ml 10/02/25 17:48 10/05/25 11:19 Sodium Chloride Flush 0.9% 10 Ml Syringe IVP 10 ml PRN PRN Administration NEEDED PER PROVIDER ORDERS Sodium Chloride 10 ml 10/03/25 01:00 10/06/25 08:50 Sodium Chloride Flush 0.9% 10 Ml Syringe IVP 10 ml 0100,0900,1700 ANA Administration Spironolactone 25 mg 10/05/25 09:00 10/06/25 08:49 Spironolactone 25 Mg Tablet PO 25 mg DAILY ANA Administration Sulfasalazine 1,000 mg 10/04/25 21:00 10/06/25 08:49 Sulfasalazine 500 Mg Tablet PO 1,000 mg BID ANA Administration Tamsulosin HCl 0.4 mg 10/05/25 13:00 10/06/25 08:49 Tamsulosin 0.4 Mg Capsule PO 0.4 mg DAILY ANA Administration Warfarin Sodium 2 mg 10/06/25 14:00 Warfarin 1 Mg Tablet PO [facility] Objective Vital Signs/Intake & Output Reviewed Vital Signs: Yes Vital Signs: Vital Signs x48h Temp Pulse Resp BP Pulse Ox 10/06/25 08:50 98.4 F 90 20 134/71 H 96 Intake & Output: Intake & Output 10/03/25 10/04/25 10/05/25 10/06/25 23:59 23:59 23:59 23:59 Intake Total 2572 / 2572 2788 / 2788 3054 / 3054 597 / 597 Output Total 1750 / 1750 2250 / 2250 2175 / 2175 Balance 822 / 822 2788 / 2788 804 / 804 -1578 / -1578 Objective General Appearance: positive No acute distress and Alert Eyes Bilateral: positive Normal inspection Neck: positive Nml inspection Respiratory: positive Chest non-tender Cardiovascular: positive Irregularly irregular Abdomen: positive Non-tender Skin: positive Color nml Extremities: positive Non-tender Neurologic/Psychiatric: positive Oriented x3 Lab Results 10/06/25 04:13 10/06/25 04:13 Other Labs: Lab Results x24hrs 10/06/25 Range/Units 04:13 WBC 7.6 (4.8-10.8) x10^3/uL RBC 2.46 L (4.70-6.10) 10^6/uL Hgb 8.3 L (14.0-18.0) g/dL Hct 26.0 L (42.0-52.0) % MCV 105.7 H (80.0-94.0) fL MCH 33.7 H (27.0-31.0) pg MCHC 31.9 L (32.0-36.0) g/dL RDW 15.4 H (12.0-15.0) % Plt Count 308 (130-450) 10^3/uL MPV 9.4 (7.4-11.4) fL Neut # (Auto) 5.6 (1.5-6.6) 10^3/uL Lymph # (Auto) 1.2 L (1.5-3.5) 10^3/uL [place] # (Auto) 0.7 (0.0-1.0) 10^3/uL Eos # (Auto) 0.0 (0.0-0.7) 10^3/uL Baso # (Auto) 0.0 (0.0-0.1) 10^3/uL Absolute Nucleated RBC 0.00 x10^3/uL Nucleated RBC % 0.0 /100WBC Sodium 139 (135-145) mmol/L Potassium 4.1 (3.5-4.5) mmol/L Chloride 109 (101-111) mmol/L Carbon Dioxide 25 (21-32) mmol/L Anion Gap 5.0 L (6-13) BUN 20 (6-20) mg/dL Creatinine 1.7 H (0.6-1.3) mg/dL Estimated GFR (MDRD) 39 L (>89) Glucose 107 H (74-104) mg/dL Calcium 8.2 L (8.5-10.3) mg/dL Assessment/Plan Problem List (1) Pyelonephritis: (2) Acute kidney injury: Impression: Plan is for both of the above problems: Pyelonephritis identified on CT scan UA concerning for infection No elevation in WBC, no concern for sepsis at this time Creatinine 1.8 on presentation, up from 1.2 Rocephin 2 g IV push daily Received 1500 mL NS bolus Plasma-Lyte at 100 CBC, BMP in a.m. 10/03: Creatinine has improved to 1.6. Continuing IV fluids and Rocephin 10/04: Creatinine has improved to 1.3. Arredondo was removed yesterday and he has continued to have clear urine output. Flank pain is subsiding. At this point he is medically clear for discharge. I have discontinued his IV fluids. I am also de-escalating his antibiotics to Keflex 1 g 3 times daily starting tomorrow 10/05: Creatinine was 1.7 this morning. I have ordered bladder scan and LR bolus, holding lisinopril for now 10/06: Creatinine remains at 1.7. He had some urinary retention yesterday requiring replacement of Arredondo catheter. He will DC with Arredondo catheter. He remains clear for discharge (3) Unintentional weight loss: Impression: He has had some significant weight loss since April. He reports no appetite. He had incidental concern for gastric outlet obstruction on previous ER visit, he is being referred to GI for workup of that. Of starting him on mirtazapine 15 mg p.o. every afternoon (4) Supratherapeutic INR: Impression: INR greater than 10 on morning labs Holding warfarin, vitamin K administered Recheck INR this afternoon 10/04: His repeat INR was 1.7. I have consulted pharmacy to restart his warfarin (5) Anemia: Impression: He has received 1 unit of PRBC so far. Ferritin and B12 levels are not low. He is having some hematuria, likely secondary to his grossly elevated INR. Continue to trend hemoglobin 10/04: His hemoglobin has trended up, now its at 8.5 (6) Permanent atrial fibrillation: Impression: Managed with carvedilol and warfarin at home, restarting carvedilol, warfarin per pharmacy (7) Essential (primary) hypertension: Impression: His blood pressure has improved to 149/78. I am restarting his home dose lisinopril, spironolactone, isosorbide
[2025-10-06] MEDS: WARFARIN 1 MG TABLET PO SCH (14:36)
[2025-10-07 04:51] LABS: HCT - HEMATOCRIT 26.4 % (42.0-52.0); HGB - HEMOGLOBIN 8.3 g/dL (14.0-18.0); MEAN PLATELET VOLUME 9.4 fL (7.4-11.4); NRBC ABSOLUTE COUNT (AUTO) 0.00 x10^3/uL; NUCLEATED RED BLOOD CELLS AUTO 0.0 /100WBC; PLT - PLATELET COUNT 316 10^3/uL (130-450); RED CELL DISTRIBUTION WIDTH 15.4 % (12.0-15.0)
[2025-10-07 04:59] LABS: BUN - BLOOD UREA NITROGEN 16.0 mg/dL (6-20); CARBON DIOXIDE - CO2 28.0 mmol/L (21-32); CREATININE 1.5 mg/dL (0.6-1.3); GFR - MDRD 45.0 (>89)
[2025-10-07 10:50] LABS: INR 3.1 (0.8-1.2); PT - PROTHROMBIN TIME 33.9 secs (9.9-12.6)
--- NOTE | 2025-10-07 13:50 | PHARMACY PROGRESS NOTE ---
Monitoring Indication for anticoagulation: Atrial Fibrillation Goal INR: 2-3 Previous home regime: 2mg daily Potentially interacting medications: leflunomide, sulfasalazine (home meds) Other anticoagulation: None Risk factors for bleed: Hypertension and Age >65 Recommendations Dosing: Anticoagulation Monitoring 10/07/25 10/07/25 10/06/25 10:19 04:18 04:13 Hgb 8.3 L 8.3 L Hct 26.4 L 26.0 L PT 33.9 H INR 3.1 H 10/05/25 10/05/25 10/04/25 07:42 04:04 07:36 Hgb 9.6 L Hct 29.3 L PT 26.3 H 18.8 H INR 2.4 H 1.7 H 10/04/25 10/03/25 10/03/25 04:08 14:09 05:38 Hgb 8.5 L 8.0 L Hct 25.7 L 25.3 L PT 33.2 H > 120.0 H* INR 3.0 H > 10.0 H* 10/02/25 12:09 Hgb 7.4 L Hct 23.5 L PT INR Last Dose Given: 2mg on 10/06/25 S&S of bleeding: Pharmacy recommendation: Hold dose (daily INRs)
--- NOTE | 2025-10-07 15:52 | PROVIDER PROGRESS NOTE ---
Subjective Prog Note Date Prog Note Date: 10/07/25 Subjective Pt reports feeling: Improved Current Medications Current Medications Current Medications: Current Medications Generic Name Dose Route Start Last Admin Trade Name Zelalem PRN Reason Stop Dose Admin Acetaminophen 650 mg 10/04/25 12:22 10/06/25 23:38 Acetaminophen 325 Mg Tablet PO 650 mg Q4HR PRN Administration Pain or Fever > 38C (100.4F) Atorvastatin Calcium 80 mg 10/05/25 09:00 10/07/25 08:11 Atorvastatin 40 Mg Tablet PO 80 mg DAILY ANA Administration Carvedilol 3.125 mg 10/04/25 21:00 10/07/25 08:11 Carvedilol 3.125 Mg Tablet PO 3.125 mg BID ANA Administration Cephalexin 1,000 mg 10/05/25 06:00 10/07/25 14:06 Cephalexin 500 Mg Capsule PO 1,000 mg TID ANA Administration Isosorbide Mononitrate 120 mg 10/05/25 09:00 10/07/25 08:12 Isosorbide Mononitrate Er 30 Mg Tablet PO 120 mg DAILY ANA Administration Mirtazapine 15 mg 10/04/25 21:00 10/06/25 20:59 Mirtazapine 15 Mg Tablet PO 15 mg QPM ANA Administration Ondansetron HCl 4 mg 10/02/25 17:48 Ondansetron Odt 4 Mg Tablet TL Q6HR PRN Nausea / Vomiting Ondansetron HCl 4 mg 10/02/25 17:48 Ondansetron 4 Mg/2 Ml Vial IVP Q6HR PRN Nausea / Vomiting Oxycodone HCl 5 mg 10/02/25 18:39 10/05/25 23:40 Oxycodone 5 Mg Tablet PO 5 mg Q4HR PRN Administration Moderate Pain (Level 4-6) Pantoprazole Sodium 40 mg 10/04/25 21:00 10/06/25 20:59 Pantoprazole 40 Mg Tablet PO 40 mg HS ANA Administration Leflunomide 20 Mg 1 each 10/05/25 09:00 10/07/25 08:10 Tablet PO 1 each DAILY ANA Administration Prednisone 2.5 mg 10/05/25 09:00 10/07/25 08:10 Prednisone 5 Mg Tablet PO 2.5 mg DAILY ANA Administration Multivit/Folic Acid/Iron 1 tab 10/04/25 08:00 10/07/25 08:12 Vitamin Tablet PO 1 tab DAILYWM ANA Administration Sodium Chloride 10 ml 10/02/25 17:48 10/05/25 11:19 Sodium Chloride Flush 0.9% 10 Ml Syringe IVP 10 ml PRN PRN Administration NEEDED PER PROVIDER ORDERS Sodium Chloride 10 ml 10/03/25 01:00 10/07/25 08:12 Sodium Chloride Flush 0.9% 10 Ml Syringe IVP 10 ml 0100,0900,1700 ANA Administration Spironolactone 25 mg 10/05/25 09:00 10/07/25 08:11 Spironolactone 25 Mg Tablet PO 25 mg DAILY ANA Administration Sulfasalazine 1,000 mg 10/04/25 21:00 10/07/25 08:10 Sulfasalazine 500 Mg Tablet PO 1,000 mg BID ANA Administration Tamsulosin HCl 0.4 mg 10/05/25 13:00 10/07/25 08:12 Tamsulosin 0.4 Mg Capsule PO 0.4 mg DAILY ANA Administration Objective Vital Signs/Intake & Output Reviewed Vital Signs: Yes Vital Signs: Vital Signs x48h Temp Pulse Resp BP Pulse Ox 10/07/25 10:38 98.2 F 85 24 97/57 L 93 Intake & Output: Intake & Output 10/04/25 10/05/25 10/06/25 10/07/25 23:59 23:59 23:59 23:59 Intake Total 2788 / 2788 3054 / 3054 1517 / 1517 600 / 600 Output Total 2250 / 2250 4050 / 4050 2200 / 2200 Balance 2788 / 2788 804 / 804 -2533 / -2533 -1600 / -1600 Objective General Appearance: positive No acute distress and Alert Eyes Bilateral: positive Normal inspection Neck: positive Nml inspection Respiratory: positive Chest non-tender Cardiovascular: positive Irregularly irregular Abdomen: positive Non-tender Skin: positive Color nml Extremities: positive Non-tender Neurologic/Psychiatric: positive Oriented x3 Lab Results 10/07/25 04:18 10/07/25 04:18 Other Labs: Lab Results x24hrs 10/07/25 10/07/25 Range/Units 10:19 04:18 WBC 6.8 (4.8-10.8) x10^3/uL RBC 2.47 L (4.70-6.10) 10^6/uL Hgb 8.3 L (14.0-18.0) g/dL Hct 26.4 L (42.0-52.0) % MCV 106.9 H (80.0-94.0) fL MCH 33.6 H (27.0-31.0) pg MCHC 31.4 L (32.0-36.0) g/dL RDW 15.4 H (12.0-15.0) % Plt Count 316 (130-450) 10^3/uL MPV 9.4 (7.4-11.4) fL Neut # (Auto) 4.5 (1.5-6.6) 10^3/uL Lymph # (Auto) 1.5 (1.5-3.5) 10^3/uL [place] # (Auto) 0.7 (0.0-1.0) 10^3/uL Eos # (Auto) 0.0 (0.0-0.7) 10^3/uL Baso # (Auto) 0.1 (0.0-0.1) 10^3/uL Absolute Nucleated RBC 0.00 x10^3/uL Nucleated RBC % 0.0 /100WBC PT 33.9 H (9.9-12.6) secs INR 3.1 H (0.8-1.2) Sodium 140 (135-145) mmol/L Potassium 4.4 (3.5-4.5) mmol/L Chloride 109 (101-111) mmol/L Carbon Dioxide 28 (21-32) mmol/L Anion Gap 3.0 L (6-13) BUN 16 (6-20) mg/dL Creatinine 1.5 H (0.6-1.3) mg/dL Estimated GFR (MDRD) 45 L (>89) Glucose 94 (74-104) mg/dL Calcium 8.3 L (8.5-10.3) mg/dL Assessment/Plan Problem List (1) Pyelonephritis: (2) Acute kidney injury: Impression: Plan is for both of the above problems: Pyelonephritis identified on CT scan UA concerning for infection No elevation in WBC, no concern for sepsis at this time Creatinine 1.8 on presentation, up from 1.2 Rocephin 2 g IV push daily Received 1500 mL NS bolus Plasma-Lyte at 100 CBC, BMP in a.m. 10/03: Creatinine has improved to 1.6. Continuing IV fluids and Rocephin 10/04: Creatinine has improved to 1.3. Arredondo was removed yesterday and he has continued to have clear urine output. Flank pain is subsiding. At this point he is medically clear for discharge. I have discontinued his IV fluids. I am also de-escalating his antibiotics to Keflex 1 g 3 times daily starting tomorrow 10/05: Creatinine was 1.7 this morning. I have ordered bladder scan and LR bolus, holding lisinopril for now 10/06: Creatinine remains at 1.7. He had some urinary retention yesterday requiring replacement of Arredondo catheter. He will DC with Arredondo catheter. He remains clear for discharge 09/07: Creatinine has improved to 1.5. Will continue to hold lisinopril. Continuing to experience delay with discharge as insurance has denied his SNF Auth. As we now have physical therapy again, they have reevaluated him and confirmed that he still needs SNF as he is severely deconditioned. Continuing Keflex (3) Unintentional weight loss: Impression: He has had some significant weight loss since April. He reports no appetite. He had incidental concern for gastric outlet obstruction on previous ER visit, he is being referred to GI for workup of that. Of starting him on mirtazapine 15 mg p.o. every afternoon (4) Supratherapeutic INR: Impression: INR greater than 10 on morning labs Holding warfarin, vitamin K administered Recheck INR this afternoon 10/04: His repeat INR was 1.7. I have consulted pharmacy to restart his warfarin (5) Anemia: Impression: He has received 1 unit of PRBC so far. Ferritin and B12 levels are not low. He is having some hematuria, likely secondary to his grossly elevated INR. Continue to trend hemoglobin 10/04: His hemoglobin has trended up, now its at 8.5 (6) Permanent atrial fibrillation: Impression: Managed with carvedilol and warfarin at home, restarting carvedilol, warfarin per pharmacy (7) Essential (primary) hypertension: Impression: His blood pressure has improved to 149/78. I am restarting his home dose lisinopril, spironolactone, isosorbide
[2025-10-08 06:01] LABS: INR 2.5 (0.8-1.2); PT - PROTHROMBIN TIME 27.5 secs (9.9-12.6)
--- NOTE | 2025-10-08 15:01 | PROVIDER PROGRESS NOTE ---
Subjective Prog Note Date Prog Note Date: 10/08/25 Subjective Pt reports feeling: No change Current Medications Current Medications Current Medications: Current Medications Generic Name Dose Route Start Last Admin Trade Name Zelalem PRN Reason Stop Dose Admin Acetaminophen 650 mg 10/04/25 12:22 10/07/25 18:16 Acetaminophen 325 Mg Tablet PO 650 mg Q4HR PRN Administration Pain or Fever > 38C (100.4F) Atorvastatin Calcium 80 mg 10/05/25 09:00 10/08/25 08:43 Atorvastatin 40 Mg Tablet PO 80 mg DAILY ANA Administration Carvedilol 3.125 mg 10/04/25 21:00 10/08/25 08:43 Carvedilol 3.125 Mg Tablet PO 3.125 mg BID ANA Administration Cephalexin 1,000 mg 10/05/25 06:00 10/08/25 13:27 Cephalexin 500 Mg Capsule PO 1,000 mg TID ANA Administration Isosorbide Mononitrate 120 mg 10/05/25 09:00 10/08/25 08:43 Isosorbide Mononitrate Er 30 Mg Tablet PO 120 mg DAILY ANA Administration Mirtazapine 15 mg 10/04/25 21:00 10/07/25 21:23 Mirtazapine 15 Mg Tablet PO 15 mg QPM ANA Administration Ondansetron HCl 4 mg 10/02/25 17:48 Ondansetron Odt 4 Mg Tablet TL Q6HR PRN Nausea / Vomiting Ondansetron HCl 4 mg 10/02/25 17:48 Ondansetron 4 Mg/2 Ml Vial IVP Q6HR PRN Nausea / Vomiting Oxycodone HCl 5 mg 10/02/25 18:39 10/05/25 23:40 Oxycodone 5 Mg Tablet PO 5 mg Q4HR PRN Administration Moderate Pain (Level 4-6) Pantoprazole Sodium 40 mg 10/04/25 21:00 10/07/25 21:23 Pantoprazole 40 Mg Tablet PO 40 mg HS ANA Administration Leflunomide 20 Mg 1 each 10/05/25 09:00 10/08/25 08:44 Tablet PO Not Given DAILY ANA Prednisone 2.5 mg 10/05/25 09:00 10/08/25 08:44 Prednisone 5 Mg Tablet PO 2.5 mg DAILY ANA Administration Multivit/Folic Acid/Iron 1 tab 10/04/25 08:00 10/08/25 08:43 Vitamin Tablet PO 1 tab DAILYWM ANA Administration Sodium Chloride 10 ml 10/02/25 17:48 10/05/25 11:19 Sodium Chloride Flush 0.9% 10 Ml Syringe IVP 10 ml PRN PRN Administration NEEDED PER PROVIDER ORDERS Sodium Chloride 10 ml 10/03/25 01:00 10/08/25 08:45 Sodium Chloride Flush 0.9% 10 Ml Syringe IVP 10 ml 0100,0900,1700 ANA Administration Spironolactone 25 mg 10/05/25 09:00 10/08/25 08:43 Spironolactone 25 Mg Tablet PO 25 mg DAILY ANA Administration Sulfasalazine 1,000 mg 10/04/25 21:00 10/08/25 08:43 Sulfasalazine 500 Mg Tablet PO 1,000 mg BID ANA Administration Tamsulosin HCl 0.4 mg 10/05/25 13:00 10/08/25 08:43 Tamsulosin 0.4 Mg Capsule PO 0.4 mg DAILY ANA Administration Warfarin Sodium 2 mg 10/08/25 16:00 Warfarin 1 Mg Tablet PO QDWARFARIN COUNTS INCLUDE 234 BEDS AT THE [facility] Objective Vital Signs/Intake & Output Reviewed Vital Signs: Yes Vital Signs: Vital Signs x48h Temp Pulse Resp BP Pulse Ox 10/08/25 08:47 97.7 F 81 18 133/67 H 96 Intake & Output: Intake & Output 10/05/25 10/06/25 10/07/25 10/08/25 23:59 23:59 23:59 23:59 Intake Total 3054 / 3054 1517 / 1517 1100 / 1100 840 / 840 Output Total 2250 / 2250 4050 / 4050 3300 / 3300 1850 / 1850 Balance 804 / 804 -2533 / -2533 -2200 / -2200 -1010 / -1010 Objective General Appearance: positive No acute distress and Alert Eyes Bilateral: positive Normal inspection Neck: positive Nml inspection Respiratory: positive Chest non-tender Cardiovascular: positive Irregularly irregular Abdomen: positive Non-tender Skin: positive Color nml Extremities: positive Non-tender Neurologic/Psychiatric: positive Oriented x3 Lab Results 10/07/25 04:18 10/07/25 04:18 Other Labs: Lab Results x24hrs 10/08/25 Range/Units 05:27 PT 27.5 H (9.9-12.6) secs INR 2.5 H (0.8-1.2) Assessment/Plan Problem List (1) Pyelonephritis: (2) Acute kidney injury: Impression: Plan is for both of the above problems: Pyelonephritis identified on CT scan UA concerning for infection No elevation in WBC, no concern for sepsis at this time Creatinine 1.8 on presentation, up from 1.2 Received 1500 mL NS bolus 10/03: Creatinine has improved to 1.6. Continuing IV fluids and Rocephin 10/04: Creatinine has improved to 1.3. Arredondo was removed yesterday and he has continued to have clear urine output. Flank pain is subsiding. At this point he is medically clear for discharge. I have discontinued his IV fluids. I am also de-escalating his antibiotics to Keflex 1 g 3 times daily starting tomorrow 10/05: Creatinine was 1.7 this morning. I have ordered bladder scan and LR bolus, holding lisinopril for now 10/06: Creatinine remains at 1.7. He had some urinary retention yesterday requiring replacement of Arredondo catheter. He will DC with Arredondo catheter. He remains clear for discharge 10/07: Creatinine has improved to 1.5. Will continue to hold lisinopril. Continuing to experience delay with discharge as insurance has denied his SNF Auth. As we now have physical therapy again, they have reevaluated him and confirmed that he still needs SNF as he is severely deconditioned. Continuing Keflex 10/08: Continuing Keflex, continuing to hold lisinopril. Insurance says overturned their denial for his SNF stay, we are now working to get him placed. I will order 1 more round of labs for tomorrow (3) Unintentional weight loss: Impression: He has had some significant weight loss since April. He reports no appetite. He had incidental concern for gastric outlet obstruction on previous ER visit, he is being referred to GI for workup of that. Of starting him on mirtazapine 15 mg p.o. every afternoon (4) Supratherapeutic INR: Impression: INR greater than 10 on morning labs Holding warfarin, vitamin K administered Recheck INR this afternoon 10/04: His repeat INR was 1.7. I have consulted pharmacy to restart his warfarin (5) Anemia: Impression: He has received 1 unit of PRBC so far. Ferritin and B12 levels are not low. He is having some hematuria, likely secondary to his grossly elevated INR. Continue to trend hemoglobin 10/04: His hemoglobin has trended up, now its at 8.5 (6) Permanent atrial fibrillation: Impression: Managed with carvedilol and warfarin at home, restarting carvedilol, warfarin per pharmacy (7) Essential (primary) hypertension: Impression: His blood pressure has improved to 149/78. I am restarting his home dose lisinopril, spironolactone, isosorbide
[2025-10-08] MEDS: WARFARIN 1 MG TABLET PO SCH (16:06)
[2025-10-09 06:05] LABS: HCT - HEMATOCRIT 26.1 % (42.0-52.0); HGB - HEMOGLOBIN 8.3 g/dL (14.0-18.0); MEAN PLATELET VOLUME 9.2 fL (7.4-11.4); NRBC ABSOLUTE COUNT (AUTO) 0.00 x10^3/uL; NUCLEATED RED BLOOD CELLS AUTO 0.0 /100WBC; PLT - PLATELET COUNT 296 10^3/uL (130-450); RED CELL DISTRIBUTION WIDTH 15.1 % (12.0-15.0)
[2025-10-09 06:16] LABS: BUN - BLOOD UREA NITROGEN 16.0 mg/dL (6-20); CARBON DIOXIDE - CO2 28.0 mmol/L (21-32); CREATININE 1.3 mg/dL (0.6-1.3); GFR - MDRD 53.0 (>89)
[2025-10-09 06:51] LABS: INR 2.0 (0.8-1.2); PT - PROTHROMBIN TIME 21.4 secs (9.9-12.6)
--- NOTE | 2025-10-09 11:12 | PROVIDER PROGRESS NOTE ---
Subjective Prog Note Date Prog Note Date: 10/09/25 Subjective Pt reports feeling: No change Current Medications Current Medications Current Medications: Current Medications Generic Name Dose Route Start Last Admin Trade Name Zelalem PRN Reason Stop Dose Admin Acetaminophen 650 mg 10/04/25 12:22 10/07/25 18:16 Acetaminophen 325 Mg Tablet PO 650 mg Q4HR PRN Administration Pain or Fever > 38C (100.4F) Atorvastatin Calcium 80 mg 10/05/25 09:00 10/09/25 08:30 Atorvastatin 40 Mg Tablet PO 80 mg DAILY ANA Administration Carvedilol 3.125 mg 10/04/25 21:00 10/09/25 08:31 Carvedilol 3.125 Mg Tablet PO 3.125 mg BID ANA Administration Cephalexin 1,000 mg 10/05/25 06:00 10/09/25 06:22 Cephalexin 500 Mg Capsule PO 1,000 mg TID ANA Administration Isosorbide Mononitrate 120 mg 10/05/25 09:00 10/09/25 08:33 Isosorbide Mononitrate Er 30 Mg Tablet PO 120 mg DAILY ANA Administration Mirtazapine 15 mg 10/04/25 21:00 10/08/25 21:10 Mirtazapine 15 Mg Tablet PO 15 mg QPM ANA Administration Ondansetron HCl 4 mg 10/02/25 17:48 Ondansetron Odt 4 Mg Tablet TL Q6HR PRN Nausea / Vomiting Ondansetron HCl 4 mg 10/02/25 17:48 Ondansetron 4 Mg/2 Ml Vial IVP Q6HR PRN Nausea / Vomiting Oxycodone HCl 5 mg 10/02/25 18:39 10/09/25 08:44 Oxycodone 5 Mg Tablet PO 5 mg Q4HR PRN Administration Moderate Pain (Level 4-6) Pantoprazole Sodium 40 mg 10/04/25 21:00 10/08/25 21:10 Pantoprazole 40 Mg Tablet PO 40 mg HS ANA Administration Leflunomide 20 Mg 1 each 10/05/25 09:00 10/09/25 10:49 Tablet PO Not Given DAILY ANA Prednisone 2.5 mg 10/05/25 09:00 10/09/25 08:31 Prednisone 5 Mg Tablet PO 2.5 mg DAILY ANA Administration Multivit/Folic Acid/Iron 1 tab 10/04/25 08:00 10/09/25 08:30 Vitamin Tablet PO 1 tab DAILYWM ANA Administration Sodium Chloride 10 ml 10/02/25 17:48 10/05/25 11:19 Sodium Chloride Flush 0.9% 10 Ml Syringe IVP 10 ml PRN PRN Administration NEEDED PER PROVIDER ORDERS Sodium Chloride 10 ml 10/03/25 01:00 10/09/25 08:45 Sodium Chloride Flush 0.9% 10 Ml Syringe IVP 10 ml 0100,0900,1700 ANA Administration Spironolactone 25 mg 10/05/25 09:00 10/09/25 08:31 Spironolactone 25 Mg Tablet PO 25 mg DAILY ANA Administration Sulfasalazine 1,000 mg 10/04/25 21:00 10/09/25 08:32 Sulfasalazine 500 Mg Tablet PO 1,000 mg BID ANA Administration Tamsulosin HCl 0.4 mg 10/05/25 13:00 10/09/25 08:31 Tamsulosin 0.4 Mg Capsule PO 0.4 mg DAILY ANA Administration Warfarin Sodium 2 mg 10/08/25 16:00 10/08/25 16:06 Warfarin 1 Mg Tablet PO 2 mg QDWARFARIN ANA Administration Objective Vital Signs/Intake & Output Reviewed Vital Signs: Yes Vital Signs: Vital Signs x48h Temp Pulse Pulse Resp BP BP Pulse Ox 10/09/25 09:33 97.7 F 76 16 127/56 L 97 10/09/25 08:28 62 130/60 10/09/25 05:49 98.4 F 74 16 122/65 93 Intake & Output: Intake & Output 10/06/25 10/07/25 10/08/25 10/09/25 23:59 23:59 23:59 23:59 Intake Total 1517 / 1517 1100 / 1100 1380 / 1380 240 / 240 Output Total 4050 / 4050 3300 / 3300 3350 / 3350 Balance -3 / -2532 -2199 / -2199 -1969 / 240 / 240 Objective General Appearance: positive No acute distress and Alert Eyes Bilateral: positive Normal inspection Neck: positive Nml inspection Respiratory: positive Chest non-tender Cardiovascular: positive Irregularly irregular Abdomen: positive Non-tender Skin: positive Color nml Extremities: positive Non-tender Neurologic/Psychiatric: positive Oriented x3 Lab Results 10/09/25 05:40 12/25/25 05:40 Other Labs: Lab Results x24hrs 10/09/25 Range/Units 05:40 WBC 6.9 (4.8-10.8) x10^3/uL RBC 2.48 L (4.70-6.10) 10^6/uL Hgb 8.3 L (14.0-18.0) g/dL Hct 26.1 L (42.0-52.0) % MCV 105.2 H (80.0-94.0) fL MCH 33.5 H (27.0-31.0) pg MCHC 31.8 L (32.0-36.0) g/dL RDW 15.1 H (12.0-15.0) % Plt Count 296 (130-450) 10^3/uL MPV 9.2 (7.4-11.4) fL Neut # (Auto) 4.6 (1.5-6.6) 10^3/uL Lymph # (Auto) 1.6 (1.5-3.5) 10^3/uL [place] # (Auto) 0.7 (0.0-1.0) 10^3/uL Eos # (Auto) 0.0 (0.0-0.7) 10^3/uL Baso # (Auto) 0.1 (0.0-0.1) 10^3/uL Absolute Nucleated RBC 0.00 x10^3/uL Nucleated RBC % 0.0 /100WBC PT 21.4 H (9.9-12.6) secs INR 2.0 H (0.8-1.2) Sodium 138 (135-145) mmol/L Potassium 4.7 H (3.5-4.5) mmol/L Chloride 105 (101-111) mmol/L Carbon Dioxide 28 (21-32) mmol/L Anion Gap 5.0 L (6-13) BUN 16 (6-20) mg/dL Creatinine 1.3 (0.6-1.3) mg/dL Estimated GFR (MDRD) 53 L (>89) Glucose 76 (74-104) mg/dL Calcium 8.5 (8.5-10.3) mg/dL Assessment/Plan Problem List (1) Pyelonephritis: (2) Acute kidney injury: Impression: Plan is for both of the above problems: Pyelonephritis identified on CT scan UA concerning for infection No elevation in WBC, no concern for sepsis at this time Creatinine 1.8 on presentation, up from 1.2 Received 1500 mL NS bolus 10/03: Creatinine has improved to 1.6. Continuing IV fluids and Rocephin 10/04: Creatinine has improved to 1.3. Arredondo was removed yesterday and he has continued to have clear urine output. Flank pain is subsiding. At this point he is medically clear for discharge. I have discontinued his IV fluids. I am also de-escalating his antibiotics to Keflex 1 g 3 times daily starting tomorrow 10/05: Creatinine was 1.7 this morning. I have ordered bladder scan and LR bolus, holding lisinopril for now 10/06: Creatinine remains at 1.7. He had some urinary retention yesterday requiring replacement of Arredondo catheter. He will DC with Arredondo catheter. He remains clear for discharge 10/07: Creatinine has improved to 1.5. Will continue to hold lisinopril. Continuing to experience delay with discharge as insurance has denied his SNF Auth. As we now have physical therapy again, they have reevaluated him and confirmed that he still needs SNF as he is severely deconditioned. Continuing Keflex 10/08: Continuing Keflex, continuing to hold lisinopril. Insurance says overturned their denial for his SNF stay, we are now working to get him placed. I will order 1 more round of labs for tomorrow 10/09: Creatinine has improved to 1.3. Still awaiting SNF (3) Unintentional weight loss: Impression: He has had some significant weight loss since April. He reports no appetite. He had incidental concern for gastric outlet obstruction on previous ER visit, he is being referred to GI for workup of that. I've started him on mirtazapine 15 mg p.o. every afternoon (4) Supratherapeutic INR: Impression: INR greater than 10 on morning labs Holding warfarin, vitamin K administered Recheck INR this afternoon 10/04: His repeat INR was 1.7. I have consulted pharmacy to restart his warfarin (5) Anemia: Impression: He has received 1 unit of PRBC so far. Ferritin and B12 levels are not low. He is having some hematuria, likely secondary to his grossly elevated INR. Continue to trend hemoglobin 10/04: His hemoglobin has trended up, now its at 8.5 (6) Permanent atrial fibrillation: Impression: Managed with carvedilol and warfarin at home, restarting carvedilol, warfarin per pharmacy (7) Essential (primary) hypertension: Impression: His blood pressure has improved to 149/78. I am restarting his home dose lisinopril, spironolactone, isosorbide
--- NOTE | 2025-10-09 13:54 | Discharge Summary ---
Discharge Summary Admit Date: 10/02/25 Discharge Date: 10/10/25 Discharging Provider: Rome Jacob Primary Care Provider: El Burton Code Status: Attempt Resuscitation DIAGNOSES Discharge Diagnoses with Status of Each Condition: Pyelonephritisde-escalated to oral antibiotics Acute kidney injuryresolved Anemiaimproving Permanent atrial fibrillationwarfarin restarted Essential hypertensionchronic HPI History of Present Illness: 80-year-old male with history of CML, CAD, atrial fibrillation managed with carvedilol and warfarin presents with back pain. Reports that he has had intermittent loss of bowel and bladder control over the past week. Reports chills, and left-sided lower back pain that radiates to his groin. He reports numbness in his legs that has been going on for 25 years Denies subjective fever, chest pain, dyspnea, abdominal pain, N/V/D In the ED, CT abdomen/pelvis showed findings consistent with acute right pyelonephritis, pyelitis, ureteritis, cystitis. Arredondo catheter was placed which showed purulent urine. Creatinine 1.8, up from 1.2 in July. Vital signs stable, no elevation in WBC. He was noted to have hemoglobin of 7.4, however, so 1 unit PRBC was ordered by ED provider UA was also suggestive of UTI, so Rocephin was given by ED provider. Hospitalist was contacted for observation for acute pyelonephritis HOSPITAL COURSE Hospital Course: Patient was admitted in the hospital and started on IV antibiotics. His initial INR was noted to be supratherapeutic, requiring 1 dose of vitamin K. We have restarted his warfarin, with pharmacy monitoring his coagulation status. He is evaluated by physical therapy, who recommended SNF. He was cleared for discharge to SNF on the , but due to delays from insurance and from facilities surrounding the holidays, he is just now able to leave. He will finish out his course of Keflex at the SNF. He expressed to me that at some point concern was raised for gastric outlet obstruction, but he has appointment with GI on October 21. The resulting weight loss is about 25 pounds, so I started him on mirtazapine. Patient had urinary retention on presentation requiring Arredondo catheter. I attempted removal of Arredondo catheter, but he continued to retain urine. Arredondo catheter has been replaced and he will need to follow-up on this outpatient. He has been started on tamsulosin. His INR was supratherapeutic on arrival, but has come back down after vitamin K. I suspect most of his acute coagulopathy was related to his acute illness and TABITHA. With resolution of these, I am resuming him on his prior dose of warfarin which is a complex dosing of 2 to 3 mg daily. He should have his INR checked within the next week, and I have asked the [facility] facility to do so. He was seen and evaluated on the day of discharge, he is feeling well. His daughter was met at bedside, her questions were answered. He discharges via private transport to [facility] for further rehab. Patient instructed to follow-up with PCP ALLERGIES Allergies Allergy/AdvReac Type Severity Reaction Status Date / Time amiodarone AdvReac Severe cardiac Verified 10/02/25 11:53 conduction issue MEDICATIONS Ambulatory Orders Medication Instructions Recorded Confirmed nitroglycerin 0.4 mg sublingual 0.4 mg sublingual Q5M PRN chest 09/01/24 10/03/25 tablet pain #25 tabs sulfasalazine 500 mg tablet 1 g (2 x 500 mg) PO BID 3 months 09/01/24 10/03/25 #360 tabs carvedilol 3.125 mg tablet 3.125 mg PO BID #180 tabs 0 04/29/25 10/03/25 warfarin 2 mg tablet See Rx Instructions .Route 1 11/17/24 10/03/25 .COMPLEX #90 tabs atorvastatin 80 mg tablet (Lipitor) 80 mg PO DAILY 10/03/25 isosorbide mononitrate 120 mg 120 mg PO DAILY 10/03/25 10/03/25 tablet,extended release 24 hr leflunomide 20 mg tablet 20 mg PO DAILY 10/03/2509/15 omeprazole 20 mg capsule,delayed 20 mg PO HS 10/03/25 10/03/25 release prednisone 2.5 mg tablet 2.5 mg PO DAILY 10/03/25 spironolactone 25 mg tablet 25 mg PO DAILY 10/03/25 acetaminophen 325 mg tablet 650 mg (2 x 325 mg) PO Q4H R PRN 10/09/25 Pain Or Fever > 38c (100.4f) #90 tabs cephalexin 500 mg capsule 1,000 mg (2 x 500 mg) PO TID 3 10/09/25 days #18 caps mirtazapine 15 mg tablet 15 mg PO QPM 30 days #30 tab s 10/09/25 vit,calcium 27-ferrous 1 tab PO DAILYWM 30 da ys #30 tabs 10/09/25 fum 60 mg iron-folic acid 1 mg tablet (Trinatal Rx 1) tamsulosin 0.4 mg capsule 0.4 mg PO DAILY 30 days #30 caps 10/09/25 PHYSICAL EXAM AT DISCHARGE Vital Signs: Vital Signs x48h Temp Pulse Resp BP Pulse Ox 10/10/25 05:39 36.9 C 83 18 124/67 94 Physical Exam Other/Comments: General Appearance: positive No acute distress and Alert Eyes Bilateral: positive Normal inspection Neck: positive Nml inspection Respiratory: positive Chest non-tender Cardiovascular: positive Irregularly irregular Abdomen: positive Non-tender Skin: positive Color nml Extremities: positive Non-tender Neurologic/Psychiatric: positive Oriented x3 LABS 10/09/25 05:40 10/09/25 05:40 FOLLOW UP Follow Up: With PCP, GI TIME SPENT Time Spent in Discharge (Minutes): 37 Discharge Plan Discharge [facility]Xfer Condition: Good Medically Cleared Date:: 10/04/25 Prescriptions: New cephalexin 500 mg Capsule 1,000 mg PO TID 3 Days Qty: 18 0RF mirtazapine 15 mg Tablet 15 mg PO QPM 30 Days Qty: 30 0RF acetaminophen 325 mg Tablet 650 mg PO Q4HR PRN (Reason: Pain Or Fever > 38c (100.4f)) Qty: 90 0RF Trinatal Rx 1 60 mg iron-1 mg Tablet 1 tab PO DAILYWM 30 Days Qty: 30 0RF tamsulosin 0.4 mg Capsule 0.4 mg PO DAILY 30 Days Qty: 30 0RF Continued nitroglycerin 0.4 mg tablet, sublingual 0.4 mg sublingual Q5M PRN (Reason: chest pain) Qty: 25 1RF Rx Instructions: do not exceed 3 doses per episode sulfasalazine 500 mg tablet 1 g PO BID 90 Days Qty: 360 3RF Rx Instructions: give with food (meal/snack) warfarin 2 mg tablet See Rx Instructions .ROUTE .COMPLEX Qty: 90 1RF Protocol: Dose Management Condition: Monday Dose/Route: 3 mg Instruction: 1.5 x 2 mg tablets Condition: Monday Dose/Route: 2 mg Instruction: 1 x 2 mg tablet Condition: Monday Dose/Route: 3 mg Instruction: 1.5 x 2 mg tablets Condition: Monday Dose/Route: 3 mg Instruction: 1.5 x 2 mg tablets Condition: Dose/Route: 3 mg Instruction: 1.5 x 2 mg tablets Condition: Monday Dose/Route: 2 mg Instruction: 1 x 2 mg tablet Condition: Monday Dose/Route: 3 mg Instruction: 1.5 x 2 mg tablets Protocol Text: Adjustment Start Date: Monday09/17/25 INR Value: 2.5 INR Date: 09/17/25 Recheck Date: 10/08/25 Dose Instruction: Take 1 tablet (2 mg) orally every evening; or as directed based on INR Rx Instructions: Take 1 tablet (2 mg) orally every evening; or as directed based on INR spironolactone 25 mg tablet 25 mg PO DAILY omeprazole 20 mg capsule,delayed release(DR/EC) 20 mg PO HS atorvastatin [Lipitor] 80 mg tablet 80 mg PO DAILY Rx Instructions: Take 1 tablet daily for high cholesterol leflunomide 20 mg tablet 20 mg PO DAILY isosorbide mononitrate 120 mg tablet extended release 24 hr 120 mg PO DAILY prednisone 2.5 mg tablet 2.5 mg PO DAILY carvedilol 3.125 mg tablet 3.125 mg PO BID Qty: 180 1RF Rx Instructions: must administer with a meal/food Discontinued lisinopril 10 mg tablet 10 mg PO DAILY Activity Restrictions: No Restrictions Diet: Regular Health Concerns: You came into the hospital with a infection in your urinary tract that had spread all the way up to your kidney. This explains the pain that you had in your back. You also had an acute kidney injury as evidenced by an elevated creatinine level. We brought you in for antibiotics and IV fluids, and this is corrected. He also had an elevated INR, He received vitamin K for this. Given the overall stability of your INR prior to your illness, your elevated INR was likely related to your illness. No changes been made to your warfarin level at this time. You were evaluated by physical therapy who recommended we send you to a residential for short rehab stay. Please do your best to eat is much as possible and participate with physical therapy. Starting you on an appetite stimulant since you have lost 25 pounds over the past 6 months. Please follow-up with PCP, and keep your appointment with GI that you have in October. You will need to have your INR checked by the [facility] facility on or around 10/18. Print Language: Tuvaluan Patient Instructions: Indwelling Urinary Catheter Dc Stand Alone Forms: SNF Discharge Follow-up Care: El Burton, NEVIN, [facility], [employer] [Primary Care Provider, Family Practice]
[2025-10-10 05:41] LABS: INR 1.9 (0.8-1.2); PT - PROTHROMBIN TIME 21.2 secs (9.9-12.6)
[2025-10-10 10:26] VITALS: BP 120/63; TEMP 97.5; O2SAT 95
== END 2025-10-10 10:15 | DRG 683 ==
LOC: ED 11:38 → MS2 11:38 → SUATTDRO 10-03 14:23
PROVIDERS: ADMIT Nurse Practitioner Acute Care; ATTEND Student in an Organized Health Care Education/Training Program